=== PATIENT | female | born 1975 | race Caucasian/White ===

== ENCOUNTER 2020-12-18 07:59 | Outpatient (REF) | payer OTHER, SELFPAY ==
[2020-12-18 08:25] LABS: MANUAL DIFF FLAG NO
[2020-12-18 08:41] LABS: Basophils Absolute Auto 0.1 X10*3/uL (0.0-0.2); Basophils Percent Auto 1.1 % (0-2); Eosinophils Absolute Auto 0.4 X10*3/uL (0.0-0.4); Eosinophils Percent Auto 5.8 % (0-4); Hematocrit 37.8 % (37-47); Hemoglobin 12.6 g/dl (12.0-16.0); Imm Gran Abs Auto 0.02 X10*3/uL (0.00-0.03); Imm Gran Pct Auto 0.3 % (0.0-0.4); Lymphocytes Absolute Auto 1.9 X10*3/uL (1.2-4.9); Lymphocytes Percent Auto 30.3 % (20-40); Mean Corpuscular HGB Conc 33.3 g/dl (31.0-35.0); Mean Corpuscular Hemoglobin 28.5 pg (27.0-33.0); Mean Corpuscular Volume 85.5 fL (80-98); Monocytes Absolute Auto 0.4 X10*3/uL (0.1-1.2); Monocytes Percent Auto 6.6 % (2-11); Neutrophils Absolute Auto 3.6 X10*3/uL (2.0-8.3); Neutrophils Percent Auto 55.9 % (45-73); Platelet Count 292 X10*3/uL (160-400); Red Blood Count 4.42 X10*6/uL (4.20-5.50); Red Cell Distribution Width 11.8 % (11.0-16.0); White Blood Count 6.4 X10*3/uL (4.8-10.8)
[2020-12-18 08:44] LABS: Estimated Average Glucose 105 mg/dL; Hemoglobin A1c % 5.3 %
[2020-12-18 09:09] LABS: Alanine Aminotransferase 35 U/L (0-31); Albumin Level 4.3 g/dL (3.5-5.0); Alkaline Phosphatase 67 U/L (39-117); Anion Gap 13 (12-20); Aspartate Amino Transferase 28 U/L (5-31); Bilirubin Total 0.5 mg/dL (0.0-1.0); Blood Urea Nitrogen 16 mg/dL (9-16); Calcium 9.1 mg/dL (8.4-10.2); Carbon Dioxide 24 mmol/L (22-29); Chloride 107 mmol/L (96-108); Cholesterol 212 mg/dL; Estimated Glomerular Filt Rate > 60; Glucose Fasting 86 mg/dL (60-99); HDL Cholesterol 47 mg/dL; LDL Cholesterol Calculated 131 mg/dl; Potassium 4.6 mmol/L (3.3-5.1); Sodium 139 mmol/L (135-145); Total Protein 6.9 g/dL (6.5-8.0); Triglycerides 171 mg/dL
[2020-12-18 09:29] LABS: TSH reflex Free T4 0.77 uIU/mL (0.32-4.0)
[2020-12-23 14:06] LABS: Aldosterone/Renin Ratio 6.2 Ratio (0.9-28.9)
== END 2020-12-18 08:00 | disposition home or self-care (01) ==
LOC: HO.LAB 07:59
PROVIDERS: PCP Physician Assistant; Visit Provider Physician Assistant
DX: I10 Essential (primary) hypertension (principal); E03.9 Hypothyroidism, unspecified; E78.2 Mixed hyperlipidemia
CPT/HCPCS: 36415; 80053; 80061; 82088; 83036; 84443; 85025

== ENCOUNTER 2021-12-20 06:45 | Outpatient (REF) | payer OTHER, SELFPAY ==
[2021-12-20 07:15] LABS: Hematocrit 37.8 % (37.0-47.0); Hemoglobin 12.5 g/dl (12.0-16.0); Mean Corpuscular HGB Conc 33.1 g/dl (31.0-35.0); Mean Corpuscular Hemoglobin 28.3 pg (27.0-33.0); Mean Corpuscular Volume 85.5 fL (80.0-98.0); Mean Platelet Volume 8.9 fL (9.4-12.3); Platelet Count 274 X10*3/uL (160-400); Red Blood Count 4.42 X10*6/uL (4.20-5.50); Red Cell Distribution Width 11.9 % (11.0-16.0); White Blood Count 7.3 X10*3/uL (4.8-10.8)
[2021-12-20 07:21] LABS: Estimated Average Glucose 105 mg/dL; Hemoglobin A1c % 5.3 %
[2021-12-20 07:44] LABS: Alanine Aminotransferase 64 U/L (0-31); Albumin Level 4.4 g/dL (3.5-5.0); Alkaline Phosphatase 60 U/L (39-117); Anion Gap 12 (12-20); Aspartate Amino Transferase 36 U/L (5-31); Bilirubin Total 0.6 mg/dL (0.0-1.0); Blood Urea Nitrogen 16 mg/dL (9-16); Calcium 9.1 mg/dL (8.4-10.2); Carbon Dioxide 24 mmol/L (22-29); Chloride 104 mmol/L (96-108); Cholesterol 193 mg/dL; Estimated Glomerular Filt Rate > 60; Glucose Fasting 92 mg/dL (60-99); HDL Cholesterol 39 mg/dL; LDL Cholesterol Calculated 112 mg/dl; Potassium 4.5 mmol/L (3.3-5.1); Sodium 135 mmol/L (135-145); Total Protein 6.8 g/dL (6.5-8.0); Triglycerides 210 mg/dL
[2021-12-20 08:05] LABS: TSH reflex Free T4 1.95 uIU/mL (0.32-4.0); Vitamin D 25-OH Total 60.4 ng/mL (>30)
== END 2021-12-20 06:46 | disposition home or self-care (01) ==
LOC: HO.LAB 06:45
PROVIDERS: PCP Physician Assistant; Visit Provider Physician Assistant
DX: I10 Essential (primary) hypertension (principal); E78.2 Mixed hyperlipidemia; E03.9 Hypothyroidism, unspecified; F32.A Depression, unspecified
CPT/HCPCS: 36415; 80053; 80061; 82306; 83036; 84443; 85027

== ENCOUNTER 2021-12-26 09:57 | Outpatient (REF) | payer OTHER, SELFPAY ==
[2021-12-26 10:33] LABS: Hematocrit 36.6 % (37.0-47.0); Hemoglobin 12.6 g/dl (12.0-16.0); Mean Corpuscular HGB Conc 34.4 g/dl (31.0-35.0); Mean Corpuscular Hemoglobin 28.8 pg (27.0-33.0); Mean Corpuscular Volume 83.8 fL (80.0-98.0); Mean Platelet Volume 8.9 fL (9.4-12.3); Platelet Count 285 X10*3/uL (160-400); Red Blood Count 4.37 X10*6/uL (4.20-5.50); Red Cell Distribution Width 11.8 % (11.0-16.0); White Blood Count 6.8 X10*3/uL (4.8-10.8)
[2021-12-26 11:13] LABS: Alanine Aminotransferase 60 U/L (0-31); Albumin Level 4.5 g/dL (3.5-5.0); Alkaline Phosphatase 65 U/L (39-117); Anion Gap 13 (12-20); Aspartate Amino Transferase 41 U/L (5-31); Bilirubin Total 0.3 mg/dL (0.0-1.0); Blood Urea Nitrogen 15 mg/dL (9-16); Calcium 9.5 mg/dL (8.4-10.2); Carbon Dioxide 26 mmol/L (22-29); Chloride 103 mmol/L (96-108); Cholesterol 187 mg/dL; Estimated Glomerular Filt Rate > 60; Glucose Fasting 87 mg/dL (60-99); HDL Cholesterol 45 mg/dL; LDL Cholesterol Calculated 97 mg/dl; Potassium 4.4 mmol/L (3.3-5.1); Sodium 138 mmol/L (135-145); Total Protein 7.2 g/dL (6.5-8.0); Triglycerides 228 mg/dL
[2021-12-26 11:35] LABS: TSH reflex Free T4 2.09 uIU/mL (0.32-4.0)
[2021-12-28 02:17] LABS: Follicle Stimulating Hormone 9.3 mIU/mL
[2021-12-28 15:36] LABS: Transglutaminase Ab IgG <1.0 U/mL; Transglutaminase IgA <1.0 U/mL
== END 2021-12-26 09:58 | disposition home or self-care (01) ==
LOC: HO.LAB 09:57
PROVIDERS: PCP Physician Assistant; Visit Provider Physician Assistant
DX: I10 Essential (primary) hypertension (principal); E03.9 Hypothyroidism, unspecified; E78.2 Mixed hyperlipidemia; R14.0 Abdominal distension (gaseous); R79.89 Other specified abnormal findings of blood chemistry
CPT/HCPCS: 36415; 80053; 80061; 83001; 84443; 85027; 86364

== ENCOUNTER 2022-03-13 07:54 | Outpatient (REF) | payer OTHER, SELFPAY ==
--- NOTE | ~2022-03-13 | US_ITS ---
EXAMINATION: US ABDOMEN COMPLETE CLINICAL INFORMATION: Other specified abnormal findings of blood chemistry. COMPARISON: None TECHNIQUE: Real-time imaging of the abdominal viscera. Technically limited study secondary to bowel gas. FINDINGS: PANCREAS: Partially visualized body of the pancreas is homogeneous in echotexture. The rest of the pancreas is obscured by overlying gas. ABDOMINAL AORTA: The proximal and mid abdominal aorta is normal caliber. The distal abdominal aorta is not visualized. INFERIOR VENA CAVA: Visualized portions are normal. LIVER: The liver is enlarged measuring 18.2 cm in length. The liver contour is normal. No focal hepatic lesions seen. There is no intrahepatic biliary duct dilatation seen. GALLBLADDER: Normal. The gallbladder is physiologically distended without evidence of stones, sludge, polyps, wall thickening or pericholecystic fluid. COMMON BILE DUCT: Not visualized. RIGHT KIDNEY: Normal. No hydronephrosis. No renal calculi or focal parenchymal lesions. The kidney measures 12.8 cm in maximum dimension. LEFT KIDNEY: No hydronephrosis. No renal calculi or focal parenchymal lesions. The kidney measures 12.0 cm in maximum dimension. SPLEEN: Normal. The spleen measures 10.4 cm in maximum dimension. FREE FLUID: None. US/US abdomen complete IMPRESSION: Mild enlarged liver with increased echogenicity but no focal lesion. Mild left renal pelvic fullness. No echogenic renal calculi. Pancreas is suboptimally visualized.
== END 2022-03-13 07:55 | disposition home or self-care (01) ==
LOC: HO.US 07:54
PROVIDERS: Visit Provider Physician Assistant
DX: R79.89 Other specified abnormal findings of blood chemistry (principal)
CPT/HCPCS: 76700

== ENCOUNTER 2023-01-01 07:41 | Outpatient (REF) | payer OTHER, SELFPAY ==
[2023-01-01 08:25] LABS: Hematocrit 38.4 % (37.0-47.0); Hemoglobin 12.8 g/dl (12.0-16.0); Mean Corpuscular HGB Conc 33.3 g/dl (31.0-35.0); Mean Corpuscular Hemoglobin 27.9 pg (27.0-33.0); Mean Corpuscular Volume 83.8 fL (80.0-98.0); Mean Platelet Volume 9.4 fL (9.4-12.3); Platelet Count 304 X10*3/uL (160-400); Red Blood Count 4.58 X10*6/uL (4.20-5.50); White Blood Count 6.9 X10*3/uL (4.8-10.8)
[2023-01-01 09:51] LABS: Alanine Aminotransferase 35 U/L (0-31); Albumin Level 4.3 g/dL (3.5-5.0); Alkaline Phosphatase 52 U/L (39-117); Anion Gap 14 (12-20); Aspartate Amino Transferase 31 U/L (5-31); Bilirubin Total 0.5 mg/dL (0.0-1.0); Blood Urea Nitrogen 18 mg/dL (9-16); Calcium 9.3 mg/dL (8.4-10.2); Carbon Dioxide 20 mmol/L (22-29); Chloride 108 mmol/L (96-108); Cholesterol 177 mg/dL; Estimated Glomerular Filt Rate > 60; Glucose Fasting 84 mg/dL (60-99); HDL Cholesterol 47 mg/dL; LDL Cholesterol Calculated 94 mg/dl; Potassium 4.4 mmol/L (3.3-5.1); Sodium 138 mmol/L (135-145); Total Protein 7.4 g/dL (6.5-8.0); Triglycerides 181 mg/dL
[2023-01-01 09:58] LABS: Creatinine Urine 124.52 mg/dL; Microalbumin Urine < 5.0 mg/L
[2023-01-01 10:07] LABS: TSH reflex Free T4 2.52 uIU/mL (0.32-4.0)
== END 2023-01-01 07:42 | disposition home or self-care (01) ==
LOC: HO.LAB 07:41
PROVIDERS: PCP Physician Assistant; Visit Provider Physician Assistant
DX: I10 Essential (primary) hypertension (principal); E78.2 Mixed hyperlipidemia; E03.9 Hypothyroidism, unspecified
CPT/HCPCS: 36415; 80053; 80061; 82043; 84443; 85027

== ENCOUNTER 2023-01-06 07:55 | Outpatient (AMB) | payer OTHER, SELFPAY ==
--- NOTE | 2023-01-06 08:02 | MHC.PC.OV ---
Vital Signs 01/06/23 08:03 Height 5 ft 5 in Weight 178 lb BMI 29.6 BP 128/72 Blood Pressure Location Lt brachial Position Sitting Pulse 78 Pulse Source Pulse Oximeter Pulse Oximetry (%) 98 Oxygen Delivery Method Room Air Intake Visit Reasons: PE Allergies No Known Allergies Allergy (Verified 01/06/23 08:14) Medication List - Last Reconciled 01/06/23 by Joshua Cam PA-C citalopram 40 mg PO DAILY 90 days levothyroxine 75 mcg PO DAILY lisinopril-hydrochlorothiazide 10-12.5 mg 1 tab PO DAILY 90 days lorazepam 0.5 mg PO BEDTIME 10 days miscellaneous medical supply (Blood Pressure Cuff) As directed simvastatin 20 mg PO DAILY 90 days Tobacco use date assessed: 01/06/23 Dental Screening Dental Screen Date: 01/06/23 Did you have a dental visit in the last 12 months?: Yes Did you have a dental problem in the last 6 months where you did not have access to dental care?: No Was dental information given to patient?: Patient has dentist HPI PE HPI Details Patient is a 47 y/o F here today for annual physical. Patient's pmhx is significant for hypothyroism, HTN, hld. Concerns--> she does report having breakthrough anxiety at times to which she smokes and drinks . ? .. ? Hypothyroidism: On levothyroxine, has been chemically and clinically euthyroid, no symptoms as of late.? TSH stable .. ? Hypertension:? Blood pressure acceptable today in office. ? She reports monitoring blood pressure at home have been stable. She denies any chest pain, headaches or dizziness.. ?She was started on lisinopril hydrochlorothiazide which has made a small improvement in her blood pressures. Otherwise denies any headaches, chest discomfort her vision issues. ? .. ? Anxiety: Patient denies any SI or HI. Patient is followed by a therapist she talks to biweekly. Most of her anxiety is stress related due to her job. ? Patient continues Celexa 40 mg which has been working well to reduce her anxiety.? She is now speaking with a mental health therapist and is feeling better. .. Elevated LFTs:? Most recent liver enzymes slightly elevated though better. Ultrasound of abdomen does show evidence of fatty liver Again advised on a reducing her weight and reducing alcohol intake. Vaccine:? Up-to-date with COVID vaccine, up-to-date with tetanus vaccine, Need sTdap .. CATECHIST: Followed by log operations coordinator - Dr Tapia at [facility]. Colon cancer screening: Willing to do Cologaud .. Mammo:-? Normal. Laboratory Tests 12/26/21 01/01/23 01/01/23 10:06 07:50 07:50 Hgb 12.8 Creatinine 0.92 ALT 60 H 35 H Triglycerides 181 Cholesterol 177 TSH 2.52 Urine Microalbumin 01/01/23 07:50 Hgb Creatinine ALT Triglycerides Cholesterol TSH Urine Microalbumin < 5.0 PFSH Surgical History History of mandibular surgery History of repair of cleft lip History of rhinoplasty Family History Father Hypertension Mother Hypertension Hypercholesterolemia Myocardial infarction, Onset Age: 55 Maternal Aunt Heart disease Social History (Updated 01/06/23 @ 08:21 by Joshua Cam PA-C) Housing: Condominium Alcohol intake: current Alcohol intake frequency: a few times a week Patient Tobacco Use Status: Current someday Tobacco user Tobacco use type: Cigarette e-Cigarette/Vaping Use: Never Used Second Hand Smoke Exposure: Yes service: No Current occupational status: employed Current occupation: self employed - [employer] Cognitive needs: No Hearing needs: No Vision needs: No Questionnaire PHQ-9 Over the last 2 weeks, how often have you been bothered by any of the following problems? 1. Little interest or pleasure in doing things: several days 2. Feeling down, depressed, or hopeless: more than half the days 3. Trouble falling or staying asleep, or sleeping too much: several days 4. Feeling tired or having little energy: not at all 5. Poor appetite or overeating: not at all 6. Feeling bad about yourself - or that you are a failure or have let yourself or your family down: several days 7. Trouble concentrating on things, such as reading the newspaper or watching television: not at all 8. Moving or speaking so slowly that other people could have noticed. Or the opposite - being so fidgety or restless that you have been moving around a lot more than usual: not at all 9. Thoughts that you would be better off or of hurting yourself in some way: not at all Total score: 5 Depression Screening Interpretation: Positive 77267 - PHQ-9 Billing: Yes Source: Developed by Drs. Christopher Payne, Cindy Frye, Owen Mcneal and colleagues, with an educational francisca from [employer]. Thrive Questionnaire Date Thrive assessed: 01/06/23 I am a: Patient What is your living situation today?: I have a steady place to live Within the past 12 months, did the food you bought not last and you didn't have the money to get more?: Never true Within the past 12 months, did you worry whether your food would run out before you got money to buy more?: Never true Do you have trouble paying for medicines?: No Do you have trouble getting transportation to medical appointments?: No Do you have trouble paying your heating and electricity bill?: No Do you have trouble taking care of your child, family member or friend?: No Do you have trouble with day-to-day activities such as bathing, preparing meals, shopping, managing finances, etc.?: No Are you currently unemployed and looking for a job?: No Are you interested in more education?: No Currently or been in a relationship where the following occur: no concerns reported AUDIT C Alcohol Use Questionnaire (AUDIT-C) 1. How often do you have a drink containing alcohol?: 2-3 times a week 2. How many drinks containing alcohol do you have on a typical day when you are drinking?: 3 or 4 3. How often do you have six or more drinks on one occasion?: Never Total Score: 4 VIKTOR-7 AMB Questionnaire VIKTOR-7 Date VIKTOR - 7 assessed: 01/06/23 Feeling nervous, anxious, or on edge: 1 = Several days Not being able to stop or control worryin = Not at all Worrying too much about different things: 0 = Not at all Trouble relaxin = Not at all Being so restless that it is hard to sit still: 0 = Not at all Becoming easily annoyed or irritable: 0 = Not at all Feeling afraid as if something awful might happen: 0 = Not at all Total VIKTRO-7 score (0-4 normal; 5-9 mild; 10-14 moderate; 15-21 severe): 1 Source: Developed by Drs. Christopher Payne, Cindy Frye, Owen Mcneal and colleagues, with an educational francisca from [employer]. VIKTOR-7 Assessment Billing VIKTOR-7 Assessment Tool: VIKTOR-7 Assessment 67822 Review of Systems Const Denies body aches, Denies chills, Denies excessive sweating, Denies fatigue, Denies fever(s) and Denies headache(s) Eyes Denies blurry vision ENT Denies dysphagia, Denies vertigo, Denies dizziness, Denies headache(s), Denies hearing loss and Denies tinnitus Card Denies chest pain, Denies chest pain with activity, Denies syncope, Denies irregular heart rhythm and Denies dyspnea Resp Denies chest congestion, Denies cough, Denies hemoptysis, Denies dyspnea and Denies wheezing GI Denies abdominal pain, Denies melena, Denies hematochezia, Denies coffee ground emesis, Denies dysphagia, Denies diarrhea, Denies nausea and Denies vomiting Denies urinary frequency, Denies dysuria, Denies urinary hesitancy and Denies urinary urgency Musc Denies arthralgias, Denies limited range of motion, Denies muscle cramps and Denies muscle weakness Skin/Breast Denies rash and Denies skin ulcer Neuro Denies Abnormal speech present, Denies confusion, Denies vertigo, Denies dizziness, Denies syncope, Denies headache(s), Denies memory loss and Denies seizure-like activity Psych Denies anxiety, Denies confusion, Denies depression, Denies memory loss, Denies panic attacks and Denies paranoia Endo Denies excessive sweating, Denies fatigue, Denies flushing, Denies polydipsia and Denies polyuria Aller/Immun Denies wheezing Physical exam (Primary Care) Vital Signs: Last Vital Signs Pulse 78 01/06/23 08:03 BP 128/72 01/06/23 08:03 Pulse Ox 98 01/06/23 08:03 Oxygen Delivery Method Room Air 01/06/23 08:03 BMI result Body Mass Index 29.6 Tobacco/Smoking Status: Tobacco use Status Tobacco use date assessed 01/06/23 01/06/23 08:12 Patient Tobacco Use Status Current someday Tobacco 01/06/23 08:21 Tobacco use type Cigarette 01/06/23 08:21 e-Cigarette/Vaping Use Never Used 01/06/23 08:21 PHQ-9: PHQ-9 Score PHQ-9: Total score 5 01/06/23 08:43 Depression Screening Interpretation: Positive Thrive Assessment: Date of Thrive Assessment Date Thrive assessed 01/06/23 01/06/23 08:12 Currently or been in a relationship where the following occur: no concerns reported Const General: cooperative, comfortable, no acute distress, alert and awake; No confusion Orientation/consciousness: oriented to person, oriented to place, patient oriented x3 and No confusion HENMT Head: Yes normocephalic Ears: external ears normal and TM's normal bilaterally Face and sinus: No sinus tenderness Mouth: Normal oral and palatal mucosa present and tongue normal Teeth and gingiva: dentition normal and gingiva normal Throat: Yes posterior oropharynx normal, Yes tonsils normal and Yes uvula midline Eyes Conjunctivae: conjunctivae normal Sclerae: sclerae normal Pupils: Equal, round and reactive pupils present EOM: EOMs intact bilaterally Direct Ophthalmoscopy: No no photophobia Neck Neck: Yes no lymphadenopathy, No tender and Yes no JVD Thyroid: Thyroid normal Carotids: no bruits Chest Chest palpation & inspection: no tenderness Resp Effort & Inspection: normal respiratory effort, no audible wheezes, not labored and no stridor Auscultation: no crackles, no rales, no rhonchi and no wheezes Cardio Jugular venous distension: no JVD Rate: regular rate, not bradycardic and not tachycardic Rhythm: regular rhythm Bruits: no carotid bruits Peripheral pulses: Peripheral pulses 2+ throughout GI Inspection: Yes normal to inspection, No abdominal wall ecchymosis and No visible herniation Palpation (GI): Soft to palpation, nontender, no guarding, not rigid and No hepatosplenomegaly present Auscultation: normoactive bowel sounds General: Yes no CVA tenderness Back/Spine/Pelvis Back: no CVA tenderness and No back tenderness Cervical Spine: cervical ROM normal Thoracic/Lumbar Spine: thoracic and lumbar spine normal to inspection, straight leg raise negative bilaterally, No thoraco-lumbar ROM limited and No lumbar spinal tenderness Skin Lesions: no lesions Rashes: no rashes Wounds: no wounds Neuro General: oriented to person, oriented to place, patient oriented x3, CN's II-XI intact bilaterally and No confusion Cranial nerves: Yes Equal, round and reactive pupils present and Yes Normal accommodation reflex present Cognition (Neuro): normal cognition Speech: No Abnormal speech present Gait exam (Neuro): Normal gait present Motor exam (neuro): 5/5 motor strength present throughout Extrem Right upper extremity: full ROM; no cyanosis Left upper extremity: full ROM; no cyanosis Right lower extremity: no edema Left lower extremity: no edema Psych Appearance: grossly normal Mental Status: mental status grossly normal Affect: normal affect Attitude: cooperative Thought process: Normal thought process present Immunizations Boostrix Tdap Performing Provider: Joshua Cam PA-C Administered by: Cassandra Kenyon CMA on 01/06/23 08:39 Dose Route Admin Location Lot Number Expiration Date [employer] Advisor 0.5 mL IM Right Deltoid [id number] 04/09/25 [id number] appsplit VIS Given Date VIS Provided VIS Publication Date 01/06/23 Single Vaccine 21 Eligibility Eligibility Date Funding Source Not [facility] Eligible 01/06/23 Private Assessment and Plan Assessment & Plan (1) Annual physical exam: Code(s): Z00.00 - Encounter for general adult medical examination without abnormal findings (2) Colon cancer screening: Code(s): Z12.11 - Encounter for screening for malignant neoplasm of colon Plan: Willing to do Cologuard (3) HLD (hyperlipidemia): Code(s): E78.5 - Hyperlipidemia, unspecified Qualifiers: Hyperlipidemia type: mixed hyperlipidemia Qualified Code(s): E78.2 - Mixed hyperlipidemia Plan: Patient's most recent lipid panel showing septal bbl total cholesterol and LDL. Will continue her current dose of simvastatin (4) HTN (hypertension): Code(s): I10 - Essential (primary) hypertension Qualifiers: Hypertension type: essential hypertension Qualified Code(s): I10 - Essential (primary) hypertension Plan: Patient's blood pressure acceptable today in office. Does report at times when taking blood pressure at home has been acceptable. Will continue current dose of lisinopril with goal blood pressure to be below 140/90 (5) Hypothyroid: Code(s): E03.9 - Hypothyroidism, unspecified Qualifiers: Hypothyroidism type: unspecified Qualified Code(s): E03.9 - Hypothyroidism, unspecified Plan: Patient continues on levothyroxine 75 mcg. Most recent TSH stable. Will continue to follow seems to should. (6) VIKTOR (generalized anxiety disorder): Code(s): F41.1 - Generalized anxiety disorder Plan: Patient does report some breakthrough anxiety due to her job. She wonders about increased dose of Celexa though already on maximum dose. Does have lorazepam available to her for high points of anxiety to which she will use on a p.r.n. basis. Again still speaks with a mental health therapist (7) Elevated LFTs: Code(s): R79.89 - Other specified abnormal findings of blood chemistry Plan: Have improved with some weight loss. Orders: Orders [facility]. Panel Fast 364 Days I10 - Essential (primary) hypertension Lipid Panel 364 Days E78.2 - Mixed hyperlipidemia TSH reflex Free T4 364 Days E03.9 - Hypothyroidism, unspecified Microalbumin, Random (w Creat) 364 Days I10 - Essential (primary) hypertension TDaP Immunization Today I10 - Essential (primary) hypertension, Z23 - Encounter for immunization Referrals Cologuard Test Z12.11 - Encounter for screening for malignant neoplasm of colon Coding Level of Care Code Est Pt Prev Care 40-64y(62300) Diagnoses Annual physical exam Z00.00 Colon cancer screening Z12.11 HLD (hyperlipidemia) E78.2 Hyperlipidemia type: mixed hyperlipidemia HTN (hypertension) I10 Hypertension type: essential hypertension Hypothyroid E03.9 Hypothyroidism type: unspecified VIKTOR (generalized anxiety disorder) F41.1 Elevated LFTs R79.89 Additional Codes VIKTOR-7 Assessment Billing - VIKTOR-7 Assessment Tool: VIKTOR-7 Assessment [id number] ([id number])
[2023-01-06 08:03] VITALS: BP 128/72; PULSE 78; O2SAT 98; BMI 29.6
== END 2023-01-06 08:42 | disposition home or self-care (01) ==
PROVIDERS: PCP Physician Assistant; Visit Provider Physician Assistant
DX: Z23 Encounter for immunization (principal); Z00.00 Encounter for general adult medical examination without abnormal findings; E03.9 Hypothyroidism, unspecified; I10 Essential (primary) hypertension; E78.2 Mixed hyperlipidemia; F41.1 Generalized anxiety disorder; R79.89 Other specified abnormal findings of blood chemistry
CPT/HCPCS: 90471; 90715; 99396

== ENCOUNTER 2023-05-16 15:28 | Outpatient (REF) | payer OTHER, SELFPAY ==
[2023-05-17 03:43] LABS: HBc Num1 0.26 S/CO (0.00-0.79); HBsAGNum1 0.39 S/CO (0.00-0.99); Hepatitis B Core Antibody Nonreactive (Nonreactive); Hepatitis B Surface Antigen Negative (Negative); ~HepC Num1 0.09 S/CO (0.00-0.79); ~Hepatitis B Surface Antibody NONREACTIVE (Nonreactive); ~Hepatitis C Antibody Nonreactive (Nonreactive)
[2023-05-17 14:58] LABS: Hepatitis B Viral DNA Qn - cp NOT DETECTED Log IU/mL (NOT DETECTED); Hepatitis B Viral DNA Qn-IU/mL NOT DETECTED (NOT DETECTED)
[2023-05-19 22:13] LABS: Hepatitis BE Antibody NON-REACTIVE (NON-REACTIVE)
== END 2023-05-16 15:29 | disposition home or self-care (01) ==
LOC: HO.LAB 15:28
PROVIDERS: PCP Physician Assistant; Visit Provider Physician Assistant
DX: Z11.3 Encounter for screening for infections with a predominantly sexual mode of transmission (principal); R79.89 Other specified abnormal findings of blood chemistry
CPT/HCPCS: 36415; 86704; 86706; 86707; 86803; 87340; 87517

== ENCOUNTER 2024-01-19 07:50 | Outpatient (REF) | payer OTHER, SELFPAY ==
[2024-01-19 08:27] LABS: Hematocrit 36.3 % (37.0-47.0); Hemoglobin 12.4 g/dl (12.0-16.0); Mean Corpuscular HGB Conc 34.2 g/dl (31.0-35.0); Mean Corpuscular Hemoglobin 29.3 pg (27.0-33.0); Mean Corpuscular Volume 85.8 fL (80.0-98.0); Mean Platelet Volume 8.8 fL (9.4-12.3); Platelet Count 258 X10*3/uL (160-400); Red Blood Count 4.23 X10*6/uL (4.20-5.50); Red Cell Distribution Width 12.4 % (11.0-16.0); White Blood Count 6.5 X10*3/uL (4.8-10.8)
[2024-01-19 09:01] LABS: Alanine Aminotransferase 99 U/L (0-31); Albumin Level 4.4 g/dL (3.5-5.0); Alkaline Phosphatase 63 U/L (39-117); Anion Gap 13 (12-20); Aspartate Amino Transferase 115 U/L (5-31); Bilirubin Total 0.5 mg/dL (0.0-1.0); Blood Urea Nitrogen 14 mg/dL (9-16); Calcium 9.2 mg/dL (8.4-10.2); Carbon Dioxide 22 mmol/L (22-29); Chloride 107 mmol/L (96-108); Cholesterol 194 mg/dL (<200); Estimated Glomerular Filt Rate > 60; Glucose Fasting 91 mg/dL (60-99); HDL Cholesterol 42 mg/dL (>40); LDL Cholesterol Calculated 118 mg/dL (<100); Potassium 4.3 mmol/L (3.3-5.1); Sodium 138 mmol/L (135-145); Triglycerides 173 mg/dL (<150)
[2024-01-19 09:12] LABS: HBS Num1 0.35 mIU/mL (0-7.99); HBc Num1 0.68 S/CO (0.00-0.79); Hepatitis B Core Antibody Nonreactive (Nonreactive); Hepatitis B Surface Antigen Negative (Negative); ~Hepatitis B Surface Antibody NONREACTIVE (Nonreactive)
[2024-01-19 09:19] LABS: TSH reflex Free T4 1.99 uIU/mL (0.32-4.0)
[2024-01-19 09:45] LABS: Creatinine Urine 164.87 mg/dL
== END 2024-01-19 07:51 | disposition home or self-care (01) ==
LOC: HO.LAB 07:50
PROVIDERS: PCP Physician Assistant; Visit Provider Physician Assistant
DX: I10 Essential (primary) hypertension (principal); R79.89 Other specified abnormal findings of blood chemistry; E78.2 Mixed hyperlipidemia; E03.9 Hypothyroidism, unspecified
CPT/HCPCS: 36415; 80053; 80061; 82043; 82570; 84443; 85027; 86704; 86706; 87340

== ENCOUNTER 2024-01-29 12:49 | Outpatient (AMB) | payer OTHER, SELFPAY ==
[2024-01-29 12:51] VITALS: BP 142/80; PULSE 105; O2SAT 97; BMI 31.2
--- NOTE | 2024-01-29 12:51 | A.OFFPC_ITS ---
Vital Signs 01/29/24 12:51 Height 5 ft 5 in Weight 187 lb 4 oz BMI 31.2 BP 142/80 H Blood Pressure Location Lt brachial Position Sitting Pulse 105 H Pulse Source Pulse Oximeter Pulse Oximetry (%) 97 Oxygen Delivery Method Room Air Intake Visit Reasons: PE Intake Note: Patient is here today for a physical. Director Orange Required: No Accompanied by: Self / Same As Patient Allergies No Known Allergies Allergy (Verified 01/29/24 13:09) Medication List - Last Reconciled 01/29/24 by Joshua Cam PA-C citalopram 40 mg PO DAILY 90 days levothyroxine 75 mcg PO DAILY lisinopril-hydrochlorothiazide 10-12.5 mg 1 tab PO DAILY 90 days lorazepam 0.5 mg PO BEDTIME 10 days miscellaneous medical supply (Blood Pressure Cuff) As directed simvastatin 20 mg PO DAILY 90 days Tobacco use date assessed: 01/06/23 Dental Screening Dental Screen Date: 01/06/23 HPI PE HPI Details Patient is a 48 y/o F here today for annual physical. Patient's pmhx is significant for hypothyroism, HTN, hld. ? .. ? Hypothyroidism: On levothyroxine, has been chemically and clinically euthyroid, no symptoms as of late.? TSH stable .. ? Hypertension:? Blood pressure slightly elevated today in office today in office. ? She reports monitoring blood pressure at home have been stable. She denies any chest pain, headaches or dizziness.. ?She was started on lisinopril hydrochlorothiazide which has made a small improvement in her blood pressures. Otherwise denies any headaches, chest discomfort her vision issues. ? .. ? Anxiety: Patient denies any SI or HI. Patient is followed by a therapist she talks to biweekly. Most of her anxiety is stress related due to her job. ? Patient continues Celexa 40 mg which has been working well to reduce her anxiety.? She is now speaking with a mental health therapist and is feeling better. .. Elevated LFTs:? Most recent liver enzymes slightly elevated though better. Ultrasound of abdomen does show evidence of fatty liver Again advised on a reducing her weight and reducing alcohol intake. Vaccine:? Up-to-date with COVID vaccine, up-to-date with tetanus vaccine, UTD with Rdap .. 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 recently had a IUD place- has been taken off of oral control Colon cancer screening: Cologuard done in 2022 normal, repeat 3 years .. Mammo:-? done in August of 2023-BI-RADS 1 Laboratory Tests 12/26/21 01/01/23 01/01/23 10:06 07:50 07:50 Hgb 12.8 Creatinine 0.92 ALT 60 H 35 H Triglycerides 181 Cholesterol 177 TSH 2.52 Urine Microalbumin 01/01/23 07:50 Hgb Creatinine ALT Triglycerides Cholesterol TSH Urine Microalbumin < 5.0 PFSH Surgical History History of mandibular surgery History of repair of cleft lip History of rhinoplasty Family History Father Hypertension Mother Hypertension Hypercholesterolemia Myocardial infarction, Onset Age: 55 Maternal Aunt Heart disease Social History (Updated 01/29/24 @ 13:14 by Joshua Cam PA-C) Housing: Condominium Alcohol intake: current Alcohol intake frequency: a few times a week Patient Tobacco Use Status: Former Tobacco user Tobacco use type: Cigarette e-Cigarette/Vaping Use: Never Used Second Hand Smoke Exposure: Yes service: No Current occupational status: employed Current occupation: self employed - [employer] Cognitive needs: No Hearing needs: No Vision needs: No Questionnaire Thrive Questionnaire Date Thrive assessed: 01/06/23 VIKTOR-7 AMB Questionnaire VIKTOR-7 Date VIKTOR - 7 assessed: 01/06/23 Source: Developed by Drs. Christopher Payne, Cindy Frye, Owen Mcneal and colleagues, with an educational francisca from [employer]. Review of Systems Const Denies body aches, Denies chills, Denies excessive sweating, Denies fatigue, Denies fever(s) and Denies headache(s) Eyes Denies blurry vision ENT Denies dysphagia, Denies vertigo, Denies dizziness, Denies headache(s), Denies hearing loss and Denies tinnitus Card Denies chest pain, Denies chest pain with activity, Denies syncope, Denies irregular heart rhythm and Denies dyspnea Resp Denies chest congestion, Denies cough, Denies hemoptysis, Denies dyspnea and Denies wheezing GI Denies abdominal pain, Denies melena, Denies hematochezia, Denies coffee ground emesis, Denies dysphagia, Denies diarrhea, Denies nausea and Denies vomiting Denies urinary frequency, Denies dysuria, Denies urinary hesitancy and Denies urinary urgency Musc Denies arthralgias, Denies limited range of motion, Denies muscle cramps and Denies muscle weakness Skin/Breast Denies rash and Denies skin ulcer Neuro Denies Abnormal speech present, Denies confusion, Denies vertigo, Denies dizziness, Denies syncope, Denies headache(s), Denies memory loss and Denies seizure-like activity Psych Denies anxiety, Denies confusion, Denies depression, Denies memory loss, Denies panic attacks and Denies paranoia Endo Denies excessive sweating, Denies fatigue, Denies flushing, Denies polydipsia and Denies polyuria Aller/Immun Denies wheezing Physical exam (Primary Care) Vital Signs: Last Vital Signs Pulse 105 H 01/29/24 12:51 BP 142/80 H 01/29/24 12:51 Pulse Ox 97 01/29/24 12:51 Oxygen Delivery Method Room Air 01/29/24 12:51 BMI result Body Mass Index 31.2 Tobacco/Smoking Status: Tobacco use Status Tobacco use date assessed 01/06/23 01/29/24 12:52 Patient Tobacco Use Status Current someday Tobacco 01/29/24 12:52 Tobacco use type Cigarette 01/29/24 12:52 e-Cigarette/Vaping Use Never Used 01/29/24 12:52 Thrive Assessment: Date of Thrive Assessment Date Thrive assessed 01/06/23 01/29/24 12:52 Const General: cooperative, comfortable, no acute distress, alert and awake; No confusion Orientation/consciousness: oriented to person, oriented to place, patient oriented x3 and No confusion HENMT Head: Yes normocephalic Ears: external ears normal and TM's normal bilaterally Face and sinus: No sinus tenderness Mouth: Normal oral and palatal mucosa present and tongue normal Teeth and gingiva: dentition normal and gingiva normal Throat: Yes posterior oropharynx normal, Yes tonsils normal and Yes uvula midline Eyes Conjunctivae: conjunctivae normal Sclerae: sclerae normal Pupils: Equal, round and reactive pupils present EOM: EOMs intact bilaterally Direct Ophthalmoscopy: No no photophobia Neck Neck: Yes no lymphadenopathy, No tender and Yes no JVD Thyroid: Thyroid normal Carotids: no bruits Chest Chest palpation & inspection: no tenderness Resp Effort & Inspection: normal respiratory effort, no audible wheezes, not labored and no stridor Auscultation: no crackles, no rales, no rhonchi and no wheezes Cardio Jugular venous distension: no JVD Rate: regular rate, not bradycardic and not tachycardic Rhythm: regular rhythm Bruits: no carotid bruits Peripheral pulses: Peripheral pulses 2+ throughout GI Inspection: Yes normal to inspection, No abdominal wall ecchymosis and No visible herniation Palpation (GI): Soft to palpation, nontender, no guarding, not rigid and No hepatosplenomegaly present Auscultation: normoactive bowel sounds General: Yes no CVA tenderness Back/Spine/Pelvis Back: no CVA tenderness and No back tenderness Cervical Spine: cervical ROM normal Thoracic/Lumbar Spine: thoracic and lumbar spine normal to inspection, straight leg raise negative bilaterally, No thoraco-lumbar ROM limited and No lumbar spinal tenderness Skin Lesions: no lesions Rashes: no rashes Wounds: no wounds Neuro General: oriented to person, oriented to place, patient oriented x3, CN's II-XI intact bilaterally and No confusion Cranial nerves: Yes Equal, round and reactive pupils present and Yes Normal accommodation reflex present Cognition (Neuro): normal cognition Speech: No Abnormal speech present Gait exam (Neuro): Normal gait present Motor exam (neuro): 5/5 motor strength present throughout Extrem Right upper extremity: full ROM; no cyanosis Left upper extremity: full ROM; no cyanosis Right lower extremity: no edema Left lower extremity: no edema Psych Appearance: grossly normal Mental Status: mental status grossly normal Affect: normal affect Attitude: cooperative Thought process: Normal thought process present Assessment and Plan Assessment & Plan (1) Annual physical exam: Code(s): Z00.00 - Encounter for general adult medical examination without abnormal findings (2) HLD (hyperlipidemia): Code(s): E78.5 - Hyperlipidemia, unspecified Qualifiers: Hyperlipidemia type: mixed hyperlipidemia Qualified Code(s): E78.2 - Mixed hyperlipidemia Plan: Patient's most recent lipid panel showing acceptable total cholesterol and LDL. Has been holding her simvastatin due to elevations in her liver enzymes. Goal LDL to be below 160 (3) HTN (hypertension): Code(s): I10 - Essential (primary) hypertension Qualifiers: Hypertension type: essential hypertension Qualified Code(s): I10 - Essential (primary) hypertension Plan: Patient's blood pressure slightly elevated today in office. Does report at times when taking blood pressure at home has been acceptable. Will continue current dose of lisinopril with goal blood pressure to be below 140/90 (4) Hypothyroid: Code(s): E03.9 - Hypothyroidism, unspecified Qualifiers: Hypothyroidism type: unspecified Qualified Code(s): E03.9 - Hypothyroidism, unspecified Plan: Patient continues on levothyroxine 75 mcg. Most recent TSH stable. Will continue to follow seems to should. (5) VIKTOR (generalized anxiety disorder): Code(s): F41.1 - Generalized anxiety disorder Plan: She reports her anxiety has been well controlled with current dose of Celexa 40 mg. 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 Has gained weight since last office visit elevations in her liver enzymes have been noted as well. Did have ultrasound of her abdomen in 2021 that did show enlarged liver. Orders: Orders Comprehensive [place]. Panel Fast 3 Months E78.2 - Mixed hyperlipidemia Lipid Panel 3 Months E78.2 - Mixed hyperlipidemia Patient Instructions: Goal: Blood pressure to be below 140/90, LDL to remain below 160. Barriers: Adherence to physical activity and healthy eating habits Coding Level of Care Code Est Pt Prev Care 40-64y(68358) Diagnoses Annual physical exam Z00.00 Mixed hyperlipidemia E78.2 Hyperlipidemia type: mixed hyperlipidemia Essential hypertension I10 Hypertension type: essential hypertension Hypothyroidism, unspecified type E03.9 Hypothyroidism type: unspecified VIKTOR (generalized anxiety disorder) F41.1 Elevated LFTs R79.89
== END 2024-01-29 13:32 | disposition home or self-care (01) ==
PROVIDERS: PCP Physician Assistant; Visit Provider Physician Assistant
DX: Z00.00 Encounter for general adult medical examination without abnormal findings (principal); E78.2 Mixed hyperlipidemia; I10 Essential (primary) hypertension; E03.9 Hypothyroidism, unspecified; F41.1 Generalized anxiety disorder; R79.89 Other specified abnormal findings of blood chemistry
CPT/HCPCS: 99396

== ENCOUNTER 2024-07-27 08:43 | Outpatient (REF) | payer OTHER, SELFPAY ==
[2024-07-27 10:06] LABS: Alanine Aminotransferase 92 U/L (0-31); Albumin Level 4.4 g/dL (3.5-5.0); Alkaline Phosphatase 71 U/L (39-117); Anion Gap 11 (12-20); Aspartate Amino Transferase 66 U/L (5-31); Bilirubin Total 0.5 mg/dL (0.0-1.0); Blood Urea Nitrogen 19 mg/dL (9-16); Calcium 9.1 mg/dL (8.4-10.2); Carbon Dioxide 24 mmol/L (22-29); Chloride 105 mmol/L (96-108); Cholesterol 268 mg/dL (<200); Estimated Glomerular Filt Rate > 60; Glucose Fasting 94 mg/dL (60-99); HDL Cholesterol 40 mg/dL (>40); LDL Cholesterol Calculated 190 mg/dL (<100); Potassium 4.4 mmol/L (3.3-5.1); Sodium 136 mmol/L (135-145); Total Protein 7.7 g/dL (6.5-8.0); Triglycerides 191 mg/dL (<150)
[2024-07-27 10:17] LABS: HBc Num1 0.49 S/CO (0.00-0.79); Hepatitis B Core Antibody Nonreactive (Nonreactive)
[2024-07-27 10:23] LABS: TSH reflex Free T4 2.86 uIU/mL (0.32-4.0)
[2024-07-27 10:42] LABS: Creatinine Urine 153.45 mg/dL; Microalbum/Creatinine Ratio Ur 4.5 ug/mg cr (<30)
== END 2024-07-27 08:44 | disposition home or self-care (01) ==
LOC: HO.LAB 08:43
PROVIDERS: PCP Physician Assistant; Visit Provider Physician Assistant
DX: E78.2 Mixed hyperlipidemia (principal); R79.89 Other specified abnormal findings of blood chemistry; I10 Essential (primary) hypertension; E03.9 Hypothyroidism, unspecified
CPT/HCPCS: 36415; 80053; 80061; 82043; 82570; 84443; 86704

== ENCOUNTER 2024-09-06 08:50 | Outpatient (REF) | payer OTHER, SELFPAY ==
--- NOTE | ~2024-09-06 | US_ITS ---
EXAMINATION: US ABDOMEN LIMITED WITH LIVER ELASTOGRAPHY HISTORY: R79.89 - Other specified abnormal findings of blood chemistry TECHNIQUE: Real-time grayscale ultrasound imaging of the right upper quadrant was performed and images were reviewed. COMPARISON: Comparison is made with the prior examination dated 03/13/2022. FINDINGS: Liver: The right lobe of the liver measures 16.3 cm in size. The left lobe of the liver measures 10.9 cm in size. The liver demonstrates increased echotexture, consistent with steatosis. There is focal fatty sparing adjacent to the gallbladder. No focal mass or intrahepatic biliary ductal dilatation is identified. There is normal hepatopedal flow in the portal vein. Ultrasound elastography of the liver was performed with 10 separate measurements of the liver parenchyma with the patient in the supine position. Measurements were obtained approximately 2 cm below Tatiana's capsule and perpendicular to the capsule. Images are of satisfactory quality. The median shear wave velocity is 2.01 m/s. The interquartile range/median (IQR/median) is 0.03. Gallbladder and biliary tree: The gallbladder is unremarkable, without evidence of calculi, wall thickening, or pericholecystic fluid. There is no sonographic Crawford sign. The common bile duct is normal in caliber measuring 2 mm. Right Kidney: The right kidney measures 12.4 cm in length. The right kidney is unremarkable, without evidence of masses, hydronephrosis, or calculi. Pancreas: The pancreatic head, neck, and body are unremarkable. The pancreatic tail is obscured by bowel gas. Abdominal aorta and inferior vena cava: The visualized portions of the abdominal aorta and inferior vena cava are normal in caliber. There is no free fluid in the right upper quadrant. US/US abdomen joseph w elastography IMPRESSION: Hepatomegaly and hepatic steatosis. The median shear wave velocity in the liver is 2.01 m/s, corresponding to a median liver stiffness of 12.20 kPa. The IQR/median value is 0.03. This is indicative of a quality data set. Findings are indicative of a high elastography value suggestive of compensated advanced chronic liver disease. REFERENCE: Society of Radiologists in Ultrasound Liver Stiffness Thresholds (2020): LIVER STIFFNESS THRESHOLDS: *Shear wave velocity less than 1.3 m/s (Liver Stiffness equal or less than 5 kPa): High probability of being normal. *Shear wave velocity less than 1.7 m/s (Liver Stiffness less than 9 kPa): In the absence of other known clinical signs, rules out compensated advanced chronic liver disease. *Shear wave velocity between 1.7-2.1 m/s (Liver Stiffness 9-13 kPa): Suggestive of compensated advanced chronic liver disease but need further test for confirmation. *Shear wave velocity between 2.1-2.4 m/s (Liver Stiffness 13-17 kPa): Rules in compensated advanced chronic liver disease. *Shear wave velocity greater than 2.4 m/s (Liver Stiffness over 17 kPa): Suggestive of clinically significant portal hypertension. QUALITY OF DATA SET: *IQR/Median value equal or less than 0.15 implies a quality data set. *IQR/Median value over 0.15 implies a poor quality data set. SIGNIFICANT CHANGE FROM PRIOR EXAM: Significant change if liver stiffness measurement is 10% or greater from prior exam. OTHER CONSIDERATIONS: The stage of liver fibrosis may be overestimated in the setting of acute hepatitis, liver inflammation, elevated liver function tests, hepatic vascular congestion, obstructive cholestasis, non-fasting state, and infiltrative diseases such as amyloidosis and lymphoma. In some patients with NAFLD, the liver stiffness thresholds for compensated advanced chronic liver disease may be lower. In causes other than viral hepatitis and NAFLD, liver stiffness thresholds are not well established. Electronically signed by: Christopher Graham MD 09/06/2024 03:24 PM EDT
== END 2024-09-06 08:51 | disposition home or self-care (01) ==
LOC: HO.US 08:50
PROVIDERS: PCP Physician Assistant; Visit Provider Physician Assistant
DX: R79.89 Other specified abnormal findings of blood chemistry (principal)
CPT/HCPCS: 76705; 76981

== ENCOUNTER → 2024-09-06 08:52 | Outpatient (BNV) | payer OTHER, SELFPAY | PROVIDERS: PCP Physician Assistant; Visit Provider Radiology Diagnostic Radiology | DX: K76.0 Fatty (change of) liver, not elsewhere classified (principal); R16.0 Hepatomegaly, not elsewhere classified | CPT/HCPCS: 76705 ==

== ENCOUNTER 2024-11-23 15:11 | Outpatient (AMB) | payer OTHER, SELFPAY ==
--- NOTE | 2024-11-23 15:12 | A.OFFVIS_ITS ---
Vital Signs 11/23/24 15:23 Height 5 ft 5 in Weight 188 lb 4.396 oz BMI 31.3 BP 136/92 H Blood Pressure Location Rt brachial Position Sitting Pulse 84 Pulse Source Pulse Oximeter Pulse Oximetry (%) 97 Oxygen Delivery Method Room Air Intake Visit Reasons: elevated liver enzymes Intake Note: NEW PATIENT for eval of elevated LFTs. Labs done 06/2024, US done 08/2024 per PCP. CC; Pt denies any GI sx or concerns at this time. Pt does report having a cologuard ordered per PCP roughly 3-4 years ago. Gang Punch Operator Required: No Accompanied by: Self / Same As Patient Allergies simvastatin Adverse Reaction (Intermediate, Verified 11/23/24 15:17) Muscle cramps HPI HPI elevated liver enzymes: Details: 49-year-old female with past medical history of hyperlipidemia, hypertension, hypothyroidism, GERD, transaminitis is here today for initial consultation. Patient was sent to us by her PCP. Patient had elevated liver enzymes since December of last year. Patient changed her diet and her liver enzymes have improved. Patient drinks alcohol socially. 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 Patient had negative Cologuard in 2022. Denies any abdominal pain or discomfort. Denies any dyspepsia, dysphagia or odynophagia. [facility] Medical History (Updated 11/23/24 @ 15:51 by Savita Schmitz [facility]) NAFL (nonalcoholic fatty liver) Surgical History History of mandibular surgery History of repair of cleft lip History of rhinoplasty Family History Father Hypertension Mother Hypertension Hypercholesterolemia Myocardial infarction, Onset Age: 55 Maternal Aunt Heart disease Social History Housing: Condominium Alcohol intake: current Alcohol intake frequency: a few times a week Patient Tobacco Use Status: Former Tobacco user Tobacco use type: Cigarette e-Cigarette/Vaping Use: Never Used Second Hand Smoke Exposure: Yes service: No Current occupational status: employed Current occupation: self employed - [employer] Cognitive needs: No Hearing needs: No Vision needs: No Review of Systems Const Denies weight gain and Denies weight loss ENT Reports no additional complaints, Denies dysphagia and Denies odynophagia Card Reports no additional complaints Resp Reports no additional complaints GI Denies abdominal pain, Denies belching, Denies melena, Denies bloating, Denies change in bowel habits, Denies dysphagia, Denies excessive flatus, Denies dyspepsia, Denies heartburn, Denies diarrhea, Denies loose stools, Denies nausea, Denies odynophagia and Denies vomiting Musc Reports no additional complaints Neuro Reports no additional complaints Psych Reports no additional complaints Endo Reports no additional complaints Physical Exam Const General: healthy appearing, no acute distress and well developed Nutritional Appearance: well nourished Orientation/consciousness: patient oriented x3 Resp Effort & Inspection: normal respiratory effort, able to speak in complete sentences, no tracheal deviation and symmetric chest movement Auscultation: clear to auscultation bilaterally Cardio Rate: regular rate GI Inspection: Yes normal to inspection and No distended Palpation (GI): Soft to palpation, not firm, nontender and No hepatosplenomegaly present Auscultation: normal bowel sounds General: Yes no CVA tenderness Back/Spine/Pelvis Back: no CVA tenderness Skin General skin exam: elasticity normal, turgor normal and dry skin Neuro General: patient oriented x3 Psych Appearance: grossly normal Mental Status: mental status grossly normal Results Reviewed Results Reviewed: Laboratory Tests 01/01/23 01/19/24 07/27/24 07:50 08:02 08:56 AST 31 115 H 66 H ALT 35 H 99 H 92 H Alkaline Phosphatase 52 63 71 ABDOMINAL ULTRASOUND WITH LIVER ELASTOGRAPHY FINDINGS: Liver: The right lobe of the liver measures 16.3 cm in size. The left lobe of the liver measures 10.9 cm in size. The liver demonstrates increased echotexture, consistent with steatosis. There is focal fatty sparing adjacent to the gallbladder. No focal mass or intrahepatic biliary ductal dilatation is identified. There is normal hepatopedal flow in the portal vein. Ultrasound elastography of the liver was performed with 10 separate measurements of the liver parenchyma with the patient in the supine position. Measurements were obtained approximately 2 cm below Tatiana's capsule and perpendicular to the capsule. Images are of satisfactory quality. The median shear wave velocity is 2.01 m/s. The interquartile range/median (IQR/median) is 0.03. Gallbladder and biliary tree: The gallbladder is unremarkable, without evidence of calculi, wall thickening, or pericholecystic fluid. There is no sonographic Crawford sign. The common bile duct is normal in caliber measuring 2 mm. Right Kidney: The right kidney measures 12.4 cm in length. The right kidney is unremarkable, without evidence of masses, hydronephrosis, or calculi. Pancreas: The pancreatic head, neck, and body are unremarkable. The pancreatic tail is obscured by bowel gas. Abdominal aorta and inferior vena cava: The visualized portions of the abdominal aorta and inferior vena cava are normal in caliber. Assessment & Plan Assessment & Plan (1) Elevated LFTs: Code(s): R79.89 - Other specified abnormal findings of blood chemistry Category: Medical (2) NAFL (nonalcoholic fatty liver): Code(s): K76.0 - Fatty (change of) liver, not elsewhere classified Category: Medical Plan Long discussion with patient about dietary choices. Patient is already changing her diet. NAFLD diet recommendation discussed with patient. List of food recommended as well as list of food to avoid given to patient. Patient will repeat liver panel today as well as liver fibrosis panel. She will return in 6 months to re-evaluate. Recommended weight loss and exercise. If her levels are still elevated will order additional blood work to rule out any autoimmune disorders that might be affecting her liver. However since she changed her diet and eliminated alcohol her last levels were much improved. Patient is agreeable to current plan of care and verbalizes understanding of instructions. She was given the opportunity to ask questions and all questions answered. Thank you for allowing me to participate in her care Orders: Orders Liver Fibrosis Pnl Today K76.0 - Fatty (change of) liver, not elsewhere classified Liver Panel Today R74.01 - Elevation of levels of liver transaminase levels US abdomen joseph w elastography 6 Months K76.0 - Fatty (change of) liver, not elsewhere classified Liver Panel 6 Months R74.01 - Elevation of levels of liver transaminase levels Coding Level of Care Code New Pt Level 3 (31930) Diagnoses Elevated LFTs R79.89 NAFL (nonalcoholic fatty liver) K76.0 Time Spent (min) 40 Comment 30 minutes spent with patient and additional 10 minutes spent reviewing her records
[2024-11-23 15:23] VITALS: BP 136/92; PULSE 84; O2SAT 97; BMI 31.3
== END 2024-11-23 15:42 | disposition home or self-care (01) ==
LOC: HO.HGI 15:12
PROVIDERS: PCP Physician Assistant; Visit Provider Nurse Practitioner Family
DX: R79.89 Other specified abnormal findings of blood chemistry (principal); K76.0 Fatty (change of) liver, not elsewhere classified
CPT/HCPCS: 99203

== ENCOUNTER 2024-11-23 15:11 | Outpatient (REF) | payer OTHER, SELFPAY ==
[2024-11-23 17:44] LABS: Alanine Aminotransferase 36 U/L (0-31); Albumin Level 4.8 g/dL (3.5-5.0); Alkaline Phosphatase 70 U/L (39-117); Anion Gap 13 (12-20); Aspartate Amino Transferase 27 U/L (5-31); Bilirubin Direct 0.1 mg/dL (0.0-0.5); Bilirubin Total 0.3 mg/dL (0.0-1.0); Blood Urea Nitrogen 23 mg/dL (9-16); Calcium 9.5 mg/dL (8.4-10.2); Carbon Dioxide 26 mmol/L (22-29); Chloride 102 mmol/L (96-108); Estimated Glomerular Filt Rate > 60; Glucose Random 82 mg/dL (60-115); Potassium 3.9 mmol/L (3.3-5.1); Sodium 137 mmol/L (135-145); Total Protein 7.7 g/dL (6.5-8.0)
[2024-11-23 18:00] LABS: TSH reflex Free T4 3.03 uIU/mL (0.32-4.0)
[2024-11-29 02:09] LABS: FIB-ALT 25 U/L (6-29); FIB-Alpha-2-Macroglobulin 136 mg/dL (106-279); FIB-Apolipoprotein A1 152 mg/dL (101-198); FIB-GGT 78 U/L (3-55); FIB-Haptoglobin 115 mg/dL (43-212); FIB-Total Bilirubin 0.3 mg/dL (0.2-1.2); Liver Fibrosis Score 0.09; Liver Fibrosis Stage F0; Nec Inflam Act Grade A0; Nec Inflam Act Score 0.08
== END 2024-11-23 15:12 | disposition home or self-care (01) ==
LOC: HO.LAB 15:11
PROVIDERS: PCP Physician Assistant; Visit Provider Nurse Practitioner Family
DX: K76.0 Fatty (change of) liver, not elsewhere classified (principal); R74.01 Elevation of levels of liver transaminase levels; I10 Essential (primary) hypertension; E03.9 Hypothyroidism, unspecified
CPT/HCPCS: 36415; 80053; 81596; 82248; 84443

== ENCOUNTER 2025-01-28 07:46 | Outpatient (REF) | payer OTHER, SELFPAY ==
[2025-01-28 08:35] LABS: Hematocrit 38.4 % (37.0-47.0); Hemoglobin 13.2 g/dl (12.0-16.0); Mean Corpuscular HGB Conc 34.4 g/dl (31.0-35.0); Mean Corpuscular Hemoglobin 28.6 pg (27.0-33.0); Mean Corpuscular Volume 83.1 fL (80.0-98.0); NRBC Abs Auto 0.000 X10*3/uL (0.0-0.012); NRBC Pct Auto 0.0 /100WBC (0.0-0.2); Platelet Count 279 X10*3/uL (160-400); Red Blood Count 4.62 X10*6/uL (4.20-5.50); White Blood Count 7.5 X10*3/uL (4.8-10.8)
[2025-01-28 09:11] LABS: Alanine Aminotransferase 38 U/L (0-31); Albumin Level 4.6 g/dL (3.5-5.0); Alkaline Phosphatase 69 U/L (39-117); Anion Gap 11 (12-20); Aspartate Amino Transferase 30 U/L (5-31); Blood Urea Nitrogen 22 mg/dL (9-16); Calcium 8.9 mg/dL (8.4-10.2); Carbon Dioxide 24 mmol/L (22-29); Chloride 107 mmol/L (96-108); Cholesterol 263 mg/dL (<200); Estimated Glomerular Filt Rate > 60; HDL Cholesterol 37 mg/dL (>40); Potassium 4.3 mmol/L (3.3-5.1); Sodium 138 mmol/L (135-145); Total Protein 7.5 g/dL (6.5-8.0); Triglycerides 138 mg/dL (<150)
[2025-01-28 10:38] LABS: Free T4 (Free Thyroxine) 0.89 ng/dL (0.71-1.85)
== END 2025-01-28 07:47 | disposition home or self-care (01) ==
LOC: HO.LAB 07:46
PROVIDERS: PCP Physician Assistant; Visit Provider Physician Assistant
DX: E78.2 Mixed hyperlipidemia (principal); I10 Essential (primary) hypertension; E03.9 Hypothyroidism, unspecified
CPT/HCPCS: 36415; 80053; 80061; 84439; 84443; 85027

== ENCOUNTER 2025-01-31 11:28 | Outpatient (AMB) | payer OTHER, SELFPAY ==
--- NOTE | 2025-01-31 11:31 | A.OFFPC_ITS ---
Vital Signs 01/31/25 11:32 Height 5 ft 5 in Weight 192 lb BMI 31.9 BP 130/80 Blood Pressure Location Lt brachial Position Sitting Pulse 69 Pulse Source Pulse Oximeter Temp 97.1 F Temp Source Temporal Artery Scan Pulse Oximetry (%) 98 Oxygen Delivery Method Room Air Intake Visit Reasons: PE Intake Note: Patient is here today for a physical. Bullet Lubricant Mixer Required: No Certified Orthotist Practice Manager: Not Required per policy Accompanied by: Self / Same As Patient Allergies simvastatin Adverse Reaction (Intermediate, Verified 01/31/25 11:52) Muscle cramps Medication List - Last Reconciled 01/31/25 by Josuha Cam PA-C berberine chloride mg PO cholecalciferol (vitamin D3) 25 mcg PO DAILY citalopram 40 mg PO DAILY 90 days creatine monohydrate ea PO lisinopril-hydrochlorothiazide 10-12.5 mg 1 tab PO DAILY 90 days miscellaneous medical supply (Blood Pressure Cuff) As directed omega-3 fatty acids 1,000 mg PO DAILY phosphatidylcholine mg PO Tobacco use date assessed: 01/31/25 Dental Screening Dental Screen Date: 01/31/25 Did you have a dental visit in the last 12 months?: Yes Did you have a dental problem in the last 6 months where you did not have access to dental care?: No Was dental information given to patient?: Patient has dentist HPI PE HPI Details Patient is a 49 y/o F here today for annual physical. Patient's pmhx is significant for hypothyroism, HTN, hld. ? .. ? Hypothyroidism: The patient has a history of hypothyroidism, with a recent TSH level of 4.01, slightly above the normal range. She previously discontinued levothyroxine without noticing any symptomatic changes. The plan is to resume levothyroxine to manage thyroid function and potentially improve lipid levels. .. ? Hypertension:? Blood pressure acceptable today in office. ? She reports monitoring blood pressure at home have been stable. She denies any chest pain, headaches or dizziness.. ?She was started on lisinopril hydrochlorothiazide which has made a small improvement in her blood pressures. Otherwise denies any headaches, chest discomfort her vision issues. PLAN: Consider restarting statin therapy though will regulate thyroid 1st. Will also give endocrinology referral due to her seemingly familial hypercholesterolemia .. Hyperlipidemia: The patient has a history of hyperlipidemia, with cholesterol levels previously recorded at 268 mg/dL and currently at 263 mg/dL. She has been unable to tolerate statins due to muscle aches and elevated liver enzymes, which have improved since discontinuing the medication. Family history reveals a significant predisposition to hyperlipidemia, with multiple relatives affected. PLAN: Will restart levothyroxine 75 mcg and retest thyroid and cholesterol panel ? .. ? Anxiety: Patient denies any SI or HI. Patient is followed by a therapist she talks to biweekly. Most of her anxiety is stress related due to her job. ? Patient continues Celexa 40 mg which has been working well to reduce her anxiety.? She is now speaking with a mental health therapist and is feeling better. .. Elevated LFTs:? Most recent liver enzymes slightly elevated though better. Ultrasound of abdomen does show evidence of fatty liver/ hepatomegaly Again advised on a reducing her weight and reducing alcohol intake. Vaccine:? Up-to-date with COVID vaccine, up-to-date with tetanus vaccine, UTD with Tdap .. BISQUE CLEANER: Followed by security expert at [facility]. Colon cancer screening: Cologuard done in 2022 normal, repeat 3 years .. Mammo:-? done in August of 2024-BI-RADS 1 Laboratory Tests 12/26/21 01/01/23 01/01/23 10:06 07:50 07:50 Hgb 12.8 Creatinine 0.92 ALT 60 H 35 H Triglycerides 181 Cholesterol 177 TSH 2.52 Urine Microalbumin 01/01/23 07:50 Hgb Creatinine ALT Triglycerides Cholesterol TSH Urine Microalbumin < 5.0 Laboratory Tests 01/01/23 01/19/24 11/23/24 07:50 08:02 15:54 Hgb 12.4 Creatinine 0.88 AST 31 115 H ALT 35 H 99 H 36 H Liver GGT 78 H Liver Fibrosis Sco re 0.09 Cholesterol 194 LDL Cholesterol, C alc 118 H TSH 3.03 01/28/25 07:58 Hgb Creatinine 0.94 AST ALT 38 H Liver GGT Liver Fibrosis Sco re Cholesterol 263 H LDL Cholesterol, C alc 199 H TSH 4.01 H PFSH Medical History NAFL (nonalcoholic fatty liver) Surgical History History of mandibular surgery History of repair of cleft lip History of rhinoplasty Family History Father Hypertension Mother Hypertension Hypercholesterolemia Myocardial infarction, Onset Age: 55 Maternal Aunt Heart disease Social History (Updated 01/31/25 @ 11:57 by Joshua Cam PA-C) Housing: Condominium Alcohol intake: current Alcohol intake frequency: a few times a week Patient Tobacco Use Status: Former Tobacco user Tobacco use type: Cigarette e-Cigarette/Vaping Use: Never Used Second Hand Smoke Exposure: Yes service: No Current occupational status: employed 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 1. Little interest or pleasure in doing things: not at all 2. Feeling down, depressed, or hopeless: not at all 3. Trouble falling or staying asleep, or sleeping too much: not at all 4. Feeling tired or having little energy: not at all 5. Poor appetite or overeating: not at all 6. Feeling bad about yourself - or that you are a failure or have let yourself or your family down: not at all 7. Trouble concentrating on things, such as reading the newspaper or watching television: not at all 8. Moving or speaking so slowly that other people could have noticed. Or the opposite - being so fidgety or restless that you have been moving around a lot more than usual: not at all 9. Thoughts that you would be better off or of hurting yourself in some way: not at all Total score: 0 Depression Screening Interpretation: Negative Depression Screening Done: Yes 60765 - PHQ-9 Billing: Yes Source: Developed by Drs. Christopher Payne, Cindy Frye, Owen Mcneal and colleagues, with an educational francisca from [employer]. Thrive Questionnaire Date Thrive assessed: 01/25/25 I am a: Patient What is your living situation today?: I have a steady place to live Within the past 12 months, did the food you bought not last and you didn't have the money to get more?: Never true Within the past 12 months, did you worry whether your food would run out before you got money to buy more?: Never true Do you have trouble paying for medicines?: No Do you have trouble getting transportation to medical appointments?: No Do you have trouble paying your heating and electricity bill?: No Do you have trouble taking care of your child, family member or friend?: No Do you have trouble with day-to-day activities such as bathing, preparing meals, shopping, managing finances, etc.?: No Are you currently unemployed and looking for a job?: No Are you interested in more education?: No Please select the resources that you would like help with: None Currently or been in a relationship where the following occur: No concerns reported THRIVE Score: 0 AUDIT C Alcohol Use Questionnaire (AUDIT-C) 1. How often do you have a drink containing alcohol?: 2-3 times a week 2. How many drinks containing alcohol do you have on a typical day when you are drinking?: 1 or 2 3. How often do you have six or more drinks on one occasion?: Monthly Total Score: 5 VIKTOR-7 AMB Questionnaire VIKTOR-7 Date VIKTOR - 7 assessed: 01/31/25 Feeling nervous, anxious, or on edge: 0 = Not at all Not being able to stop or control worryin = Not at all Worrying too much about different things: 0 = Not at all Trouble relaxin = Not at all Being so restless that it is hard to sit still: 0 = Not at all Becoming easily annoyed or irritable: 0 = Not at all Feeling afraid as if something awful might happen: 0 = Not at all Total VIKTOR-7 score (0-4 normal; 5-9 mild; 10-14 moderate; 15-21 severe): 0 Source: Developed by Drs. Christopher Payne, Cindy Frye, Owen Mcneal and colleagues, with an educational francisca from [employer]. VIKTOR-7 Assessment Billing VIKTOR-7 Assessment Tool: VIKTOR-7 Assessment 95330 Review of Systems Const Denies body aches, Denies chills, Denies excessive sweating, Denies fatigue, Denies fever(s) and Denies headache(s) Eyes Denies blurry vision ENT Denies dysphagia, Denies vertigo, Denies dizziness, Denies headache(s), Denies hearing loss and Denies tinnitus Card Denies chest pain, Denies chest pain with activity, Denies syncope, Denies irregular heart rhythm and Denies dyspnea Resp Denies chest congestion, Denies cough, Denies hemoptysis, Denies dyspnea and Denies wheezing GI Denies abdominal pain, Denies melena, Denies hematochezia, Denies coffee ground emesis, Denies dysphagia, Denies diarrhea, Denies nausea and Denies vomiting Denies urinary frequency, Denies dysuria, Denies urinary hesitancy and Denies urinary urgency Musc Denies arthralgias, Denies limited range of motion, Denies muscle cramps and Denies muscle weakness Skin/Breast Denies rash and Denies skin ulcer Neuro Denies Abnormal speech present, Denies confusion, Denies vertigo, Denies dizziness, Denies syncope, Denies headache(s), Denies memory loss and Denies seizure-like activity Psych Denies anxiety, Denies confusion, Denies depression, Denies memory loss, Denies panic attacks and Denies paranoia Endo Denies excessive sweating, Denies fatigue, Denies flushing, Denies polydipsia and Denies polyuria Aller/Immun Denies wheezing Physical exam (Primary Care) Vital Signs: Last Vital Signs Temp 97.1 F 01/31/25 11:32 Pulse 69 01/31/25 11:32 BP 130/80 01/31/25 11:32 Pulse Ox 98 01/31/25 11:32 Oxygen Delivery Method Room Air 01/31/25 11:32 BMI result Body Mass Index 31.9 BMI Assessment/Plan discussion: High BMI High, discussed plan: lifestyle, weight reduction, dietary and physical activity Tobacco/Smoking Status: Tobacco use Status Tobacco use date assessed 01/31/25 01/31/25 11:46 Patient Tobacco Use Status Former Tobacco user 01/31/25 11:57 Tobacco use type Cigarette 01/31/25 11:57 e-Cigarette/Vaping Use Never Used 01/31/25 11:57 PHQ-9: PHQ-9 Score PHQ-9: Total score 0 01/31/25 12:20 Depression Screening Interpretation: Negative Thrive Assessment: Date of Thrive Assessment Date Thrive assessed 07/29/25 08/04/25 11:46 Currently or been in a relationship where the following occur: No concerns reported Const General: cooperative, comfortable, no acute distress, alert and awake; No confusion Orientation/consciousness: oriented to person, oriented to place, patient oriented x3 and No confusion HENMT Head: Yes normocephalic Ears: external ears normal and TM's normal bilaterally Face and sinus: No sinus tenderness Mouth: Normal oral and palatal mucosa present and tongue normal Teeth and gingiva: dentition normal and gingiva normal Throat: Yes posterior oropharynx normal, Yes tonsils normal and Yes uvula midline Eyes Conjunctivae: conjunctivae normal Sclerae: sclerae normal Pupils: Equal, round and reactive pupils present EOM: EOMs intact bilaterally Direct Ophthalmoscopy: No no photophobia Neck Neck: Yes no lymphadenopathy, No tender and Yes no JVD Thyroid: Thyroid normal Carotids: no bruits Chest Chest palpation & inspection: no tenderness Resp Effort & Inspection: normal respiratory effort, no audible wheezes, not labored and no stridor Auscultation: no crackles, no rales, no rhonchi and no wheezes Cardio Jugular venous distension: no JVD Rate: regular rate, not bradycardic and not tachycardic Rhythm: regular rhythm Bruits: no carotid bruits Peripheral pulses: Peripheral pulses 2+ throughout GI Inspection: Yes normal to inspection, No abdominal wall ecchymosis and No visible herniation Palpation (GI): Soft to palpation, nontender, no guarding, not rigid and No hepatosplenomegaly present Auscultation: normoactive bowel sounds General: Yes no CVA tenderness Back/Spine/Pelvis Back: no CVA tenderness and No back tenderness Cervical Spine: cervical ROM normal Thoracic/Lumbar Spine: thoracic and lumbar spine normal to inspection, straight leg raise negative bilaterally, No thoraco-lumbar ROM limited and No lumbar spinal tenderness Skin Lesions: no lesions Rashes: no rashes Wounds: no wounds Neuro General: oriented to person, oriented to place, patient oriented x3, CN's II-XI intact bilaterally and No confusion Cranial nerves: Yes Equal, round and reactive pupils present and Yes Normal accommodation reflex present Cognition (Neuro): normal cognition Speech: No Abnormal speech present Gait exam (Neuro): Normal gait present Motor exam (neuro): 5/5 motor strength present throughout Extrem Right upper extremity: full ROM; no cyanosis Left upper extremity: full ROM; no cyanosis Right lower extremity: no edema Left lower extremity: no edema Psych Appearance: grossly normal Mental Status: mental status grossly normal Affect: normal affect Attitude: cooperative Thought process: Normal thought process present Coding Level of Care Code Est Pt Prev Care 40-64y(96044) Diagnoses Annual physical exam Z00.00 Hypothyroidism, unspecified type E03.9 Hypothyroidism type: unspecified Mixed hyperlipidemia E78.2 Hyperlipidemia type: mixed hyperlipidemia Essential hypertension I10 Hypertension type: essential hypertension Class 1 obesity E66.811 Additional Codes VIKTOR-7 Assessment Billing - VIKTOR-7 Assessment Tool: VIKTOR-7 Assessment 79047 ([id number]) PHQ-9 - 68833 - PHQ-9 Billing: Yes ([id number]) Assessment & Plan Assessment & Plan (1) Annual physical exam: Code(s): Z00.00 - Encounter for general adult medical examination without abnormal findings Category: Medical Plan: As per HPI (2) Hypothyroid: Code(s): E03.9 - Hypothyroidism, unspecified Category: Medical Qualifiers: Hypothyroidism type: unspecified Qualified Code(s): E03.9 - Hypothyroidism, unspecified Plan: The patient's TSH level is slightly elevated at 4.01, indicating hypothyroidism. She previously discontinued levothyroxine but will resume it to manage thyroid function and potentially improve lipid levels. (3) HLD (hyperlipidemia): Code(s): E78.5 - Hyperlipidemia, unspecified Category: Medical Qualifiers: Hyperlipidemia type: mixed hyperlipidemia Qualified Code(s): E78.2 - Mixed hyperlipidemia Plan: The patient has a history of hyperlipidemia with cholesterol levels at 263 mg/dL and LDL at 199 mg/dL. She has been unable to tolerate statins due to muscle aches and elevated liver enzymes. A referral to an lehr stripper is planned to explore alternative treatments, including potential non-statin medications or injections like Praluent. (4) HTN (hypertension): Code(s): I10 - Essential (primary) hypertension Category: Medical Qualifiers: Hypertension type: essential hypertension Qualified Code(s): I10 - Essential (primary) hypertension Plan: Patient's blood pressure acceptable today in office. Will continue her current dose of lisinopril hydrochlorothiazide with goal blood pressure to remain below 140/90 (5) Class 1 obesity: Code(s): E66.811 - Obesity, class 1 Category: Medical Plan: Patient does understand her BMI is over 30 has been working on being more physically active and adapting to better eating habits to reduce her weight Orders: Orders Lipid Panel Today E78.2 - Mixed hyperlipidemia Comprehensive [place]. Panel Fast Today E78.2 - Mixed hyperlipidemia TSH reflex Free T4 Today E03.9 - Hypothyroidism, unspecified Referrals Endocrinology Referral E78.2 - Mixed hyperlipidemia Medications: New levothyroxine 75 mcg PO DAILY 90 caps 1RF 90 days E78.2 - Mixed hyperlipidemia
[2025-01-31 11:32] VITALS: BP 130/80; PULSE 69; TEMP 36.2; O2SAT 98; BMI 31.9
== END 2025-01-31 12:19 | disposition home or self-care (01) ==
LOC: HO.HMCH 11:29
PROVIDERS: PCP Physician Assistant; Visit Provider Physician Assistant
DX: Z00.00 Encounter for general adult medical examination without abnormal findings (principal); E03.9 Hypothyroidism, unspecified; E78.2 Mixed hyperlipidemia; I10 Essential (primary) hypertension; E66.811 Obesity, class 1

== ENCOUNTER → 2025-01-31 11:28 | Outpatient (BNVA) | payer OTHER, SELFPAY | PROVIDERS: PCP Physician Assistant; Visit Provider Physician Assistant | DX: Z00.00 Encounter for general adult medical examination without abnormal findings (principal); E03.9 Hypothyroidism, unspecified; E78.2 Mixed hyperlipidemia; I10 Essential (primary) hypertension; E66.811 Obesity, class 1; Z68.31 Body mass index [BMI] 31.0-31.9, adult; F41.9 Anxiety disorder, unspecified; Z79.899 Other long term (current) drug therapy; Z13.31 Encounter for screening for depression; Z13.39 Encounter for screening examination for other mental health and behavioral disorders | CPT/HCPCS: 96127 ==

== ENCOUNTER 2025-04-01 08:53 | Outpatient (AMB) | payer OTHER, SELFPAY ==
[2025-04-01 08:57] VITALS: BP 122/70; PULSE 81; O2SAT 98; BMI 32.4
--- NOTE | 2025-04-01 08:57 | A.OFFVIS_ITS ---
Vital Signs 04/01/25 08:57 Height 5 ft 5 in Weight 194 lb 7.163 oz BMI 32.4 BP 122/70 Blood Pressure Location Rt brachial Position Sitting Pulse 81 Pulse Source Pulse Oximeter Pulse Oximetry (%) 98 Oxygen Delivery Method Room Air Intake Visit Reasons: Mixed hyperlipidemia Intake Note: Patient present today for mixed hyperlipidemia. Manager Sterile Processing Required: No Accompanied by: Self / Same As Patient Allergies simvastatin Adverse Reaction (Intermediate, Verified 04/01/25 09:01) Muscle cramps Medication List - Last Reconciled 04/01/25 by Sera Hearn MD berberine chloride mg PO cholecalciferol (vitamin D3) 25 mcg PO DAILY citalopram 40 mg PO DAILY 90 days creatine monohydrate ea PO levothyroxine 75 mcg PO DAILY 90 days lisinopril-hydrochlorothiazide 10-12.5 mg 1 tab PO DAILY 90 days miscellaneous medical supply (Blood Pressure Cuff) As directed omega-3 fatty acids 1,000 mg PO DAILY phosphatidylcholine mg PO HPI Comments Details: 49 yo female here today for dyslipidemia. was on simvastatin since her 20s, stopped January 2024, due to LFT elevation Restarted Jun 2024, simvastatin 40 mg daily but got severe muscles and joint pains, took it for for 2 weeks and then stopped , pains resolved as soon she stopped Patient had elevated liver enzymes since December 2023. Patient changed her diet and her liver enzymes have improved. Per GI findings of JENNIE, was advised to make dietary changes. liver enzymes have improved despite not much weight loss. No other statin tried. no history of DM No history of CAD/stroke mother : [place] at 55 years Maternal grandfather : CAD Lots of cousins with high cholesterol levels Scores by [place] and Dino broom criteria both indicate possible familial hypercholesterolemia ASCVD lifetime risk 50 percent former smoker Quit 5 years ago smoked from college till early 20s , then again from 2019 to 2020 exercise : she is a adjunct instructor chemistry , does a lot of yoga and walks 15 to 20 mins a day Does eat red meat, twice a week Physical exam General: sitting comfortably in no acute distress HEENT: normocephalic/atraumatic, Neck: supple, symmetrical, no thyromegaly , no dorsocervical or supraclavicular fat pads Cardiac: normal heart sounds Pulm: normal breath sounds B/L, no added breath sounds Abd: not distended, no tenderness Extremities: no edema, no signs of myxedema Neuro: AAO x3, Speech: normal, no facial droop, moving all 4 extremities Laboratory Tests 01/01/23 01/19/24 07/27/24 07:50 08:02 08:56 Triglycerides 181 173 H 191 H Cholesterol 177 194 268 H LDL Cholesterol, Calc 94 118 H 190 H HDL Cholesterol 47 42 40 L 01/28/25 07:58 Triglycerides 138 Cholesterol 263 H LDL Cholesterol, Calc 199 H HDL Cholesterol 37 L PFS Medical History NAFL (nonalcoholic fatty liver) Surgical History History of mandibular surgery History of repair of cleft lip History of rhinoplasty Family History Father Hypertension Mother Hypertension Hypercholesterolemia Myocardial infarction, Onset Age: 55 Maternal Aunt Heart disease Social History [facility] Alcohol intake: current Alcohol intake frequency: a few times a week Patient Tobacco Use Status: Former Tobacco user Tobacco use type: Cigarette e-Cigarette/Vaping Use: Never Used Second Hand Smoke Exposure: Yes service: No Current occupational status: employed 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 She has had history of elevated LDL and cholesterol levels since her 20s. She used to be on simvastatin 40 mg daily up until summer 2023 when she was noted to have elevated liver enzymes and this was stopped. The liver enzymes were only mildly elevated and did not improve with stopping the statin. However recently she had GI evaluation and was thought to have metabolic associated steatosis liver dysfunction with some improvement in liver enzymes after changes in her diet. She has not lost much weight with the dietary changes. She is following with GI for this. Once him was statin was restarted in June 2024, patient had severe muscle and joint aches, could not tolerate the medication and stopped it within 2 weeks. No other statin was tried. Since only simvastatin was tried, we will put her on of the statin. Plus given her LDL is greater than 190 mg/dL she meets criteria for high-intensity statin with a goal of reduction of LDL by at least 50%. We will start her on atorvastatin 40 mg daily. I have asked her to reach out to us if she has any muscle aches or pains or cramps. We also discussed signs of liver toxicity and to go to the ED if that happens. We will also recheck her AST and ALT levels in 3-4 weeks. First we can do some tire the area with different statins. If she does not tolerate the atorvastatin 40 mg daily, we could reduce it to every other day, or if even that does not work we can switch her to rosuvastatin. By both that [place] criteria and Dino brocortez criteria she possibly has familial hypercholesterolemia. If she can not tolerate statins, we can try other options such as ezetimibe, bempedoic acid, PCSK9 inhibitors. Plan: -start atorvastatin 40 mg daily -repeat blood work in 4 weeks for liver enzymes -report side effects -plan to repeat lipid panel prior to her next follow up me in August 2025 Plan I spent 45 minutes in reviewing the record, seeing the patient and documenting in the medical record. Orders: Orders Aspartate Amino Transferase 4 Weeks E78.5 - Hyperlipidemia, unspecified Alanine Aminotransferase 4 Weeks E78.5 - Hyperlipidemia, unspecified Medications: New atorvastatin (Lipitor) 40 mg PO BEDTIME 90 tabs 3RF E78.5 - Hyperlipidemia, unspecified Patient Instructions: Start atorvastatin 40 mg daily at bedtime Do blood work for liver enzymes in 4 weeks or so We will reach out with the results Follow up in August 2025, he will also need blood work prior to that appointment, please call the office 2 weeks or so prior to get blood work orders I please report any side effects of the atorvastatin to us either through the portal or calling the office during office hours Watch out for muscle cramps, joint aches and pains If you start having any nausea, vomiting, pills stools, dark urine, jaundiced appearance, please go to the emergency room for those are signs of liver toxicity Coding Level of Care Code New Pt Level 4 (50435) Diagnoses Dyslipidemia (high LDL; low HDL) E78.5 Time Spent (min) 45
== END 2025-04-01 09:51 | disposition home or self-care (01) ==
LOC: HO.ENCR 08:54
PROVIDERS: PCP Physician Assistant; Visit Provider Student in an Organized Health Care Education/Training Program
DX: E78.5 Hyperlipidemia, unspecified (principal)
CPT/HCPCS: 99204

== ENCOUNTER 2025-04-29 09:22 | Outpatient (REF) | payer OTHER, SELFPAY ==
[2025-04-29 11:15] LABS: Alanine Aminotransferase 43 U/L (0-31); Albumin Level 4.6 g/dL (3.5-5.0); Alkaline Phosphatase 73 U/L (39-117); Anion Gap 10 (12-20); Aspartate Amino Transferase 35 U/L (5-31); Blood Urea Nitrogen 20 mg/dL (9-16); Calcium 9.4 mg/dL (8.4-10.2); Carbon Dioxide 24 mmol/L (22-29); Chloride 108 mmol/L (96-108); Cholesterol 234 mg/dL (<200); Estimated Glomerular Filt Rate > 60; HDL Cholesterol 37 mg/dL (>40); Potassium 4.4 mmol/L (3.3-5.1); Sodium 138 mmol/L (135-145); Total Protein 7.4 g/dL (6.5-8.0); Triglycerides 149 mg/dL (<150)
== END 2025-04-29 09:23 | disposition home or self-care (01) ==
LOC: HO.LAB 09:22
PROVIDERS: PCP Physician Assistant; Visit Provider Physician Assistant
DX: E78.2 Mixed hyperlipidemia (principal); E03.9 Hypothyroidism, unspecified
CPT/HCPCS: 36415; 80053; 80061; 84443

== ENCOUNTER 2025-05-04 14:57 | Outpatient (AMB) | payer OTHER, SELFPAY ==
[2025-05-04 15:00] VITALS: BP 136/92; PULSE 85; TEMP 36.2; O2SAT 94; BMI 31.8
--- NOTE | 2025-05-04 15:00 | A.OFFPC_ITS ---
Vital Signs 05/04/25 15:00 Height 5 ft 5 in Weight 191 lb 6 oz BMI 31.8 BP 136/92 H Blood Pressure Location Lt brachial Position Sitting Pulse 85 Pulse Source Pulse Oximeter Temp 97.1 F Temp Source Temporal Artery Scan Pulse Oximetry (%) 94 Oxygen Delivery Method Room Air Intake Visit Reasons: f/u HLD/ HTN Allergies atorvastatin Adverse Reaction (Intermediate, Verified 05/04/25 15:12) Joint Pain simvastatin Adverse Reaction (Intermediate, Verified 05/04/25 15:07) Muscle cramps Medication List - Last Reconciled 05/04/25 by Joshua Cam PA-C atorvastatin (Lipitor) 40 mg PO BEDTIME berberine chloride mg PO cholecalciferol (vitamin D3) 25 mcg PO DAILY citalopram 40 mg PO DAILY 90 days creatine monohydrate ea PO levothyroxine 75 mcg PO DAILY 90 days lisinopril-hydrochlorothiazide 10-12.5 mg 1 tab PO DAILY 90 days miscellaneous medical supply (Blood Pressure Cuff) As directed omega-3 fatty acids 1,000 mg PO DAILY phosphatidylcholine mg PO Tobacco use date assessed: 05/04/25 Dental Screening Dental Screen Date: 05/04/25 Did you have a dental visit in the last 12 months?: Yes Did you have a dental problem in the last 6 months where you did not have access to dental care?: No Was dental information given to patient?: Patient has dentist HPI f/u HLD/ HTN HPI Details Patient is a 49 y/o F here today for a follow-up visit. Patient's pmhx is significant for hypothyroism, HTN, hld. ? .. ? Hypothyroidism: The patient has a history of hypothyroidism, most recent TSH stabilize on levothyroxine 75 mcg. Interestingly enough her lipid panel also did improved by 30 point reduction in the total cholesterol and LDL. PLAN: Will increase her levothyroxine dose to 88 mcg and recheck TSH and lipid panel in the next 3 months. .. ? Hypertension:? Blood pressure acceptable today in office. ? She reports monitoring blood pressure at home have been stable. She denies any chest pain, headaches or dizziness.. ?She was started on lisinopril hydrochlorothiazide which has made a small improvement in her blood pressures. Otherwise denies any headaches, chest discomfort her vision issues. PLAN: Consider restarting statin therapy though will regulate thyroid 1st. Will also give endocrinology referral due to her seemingly familial hypercholesterolemia .. Hyperlipidemia: She has establish care with the lens coater whom recommended trialing a new statin (atorvastatin). She recently had lab work which showed improvement, with her total cholesterol decreasing from 263 to 234 mg/dL and LDL from 199 to 168 mg/dL. Her thyroid function has normalized after restarting her thyroid medication. The patient has a history of statin intolerance. She previously took a statin for 20 years without problems but had to stop due to concerns about her liver enzymes. Upon attempting to restart statin therapy with simvastatin and more recently atorvastatin, she experienced significant joint pain and muscle aches, which resolved within days of discontinuation. She took atorvastatin for about three weeks recently. The patient reports making significant dietary changes, focusing on macronutrients, eating healthy foods like turkey and vegetables, and avoiding fried foods. .. Elevated LFTs:? Most recent liver enzymes slight elevation in the setting of starting statin therapy. Ultrasound of abdomen does show evidence of fatty liver/ hepatomegaly Again advised on a reducing her weight and reducing alcohol intake [facility] Medical History Dyslipidemia (high LDL; low HDL) NAFL (nonalcoholic fatty liver) Surgical History History of mandibular surgery History of repair of cleft lip History of rhinoplasty Family History Father Hypertension Mother Hypertension Hypercholesterolemia Myocardial infarction, Onset Age: 55 Maternal Aunt Heart disease [facility] Alcohol intake: current Alcohol intake frequency: a few times a week Patient Tobacco Use Status: Former Tobacco user Tobacco use type: Cigarette e-Cigarette/Vaping Use: Never Used Second Hand Smoke Exposure: Yes service: No Current occupational status: employed Current occupation: self employed - [employer] Cognitive needs: No Hearing needs: No Vision needs: No Questionnaire PHQ-9 Over the last 2 weeks, how often have you been bothered by any of the following problems? 1. Little interest or pleasure in doing things: not at all 2. Feeling down, depressed, or hopeless: not at all 3. Trouble falling or staying asleep, or sleeping too much: not at all 4. Feeling tired or having little energy: not at all 5. Poor appetite or overeating: not at all 6. Feeling bad about yourself - or that you are a failure or have let yourself or your family down: not at all 7. Trouble concentrating on things, such as reading the newspaper or watching television: not at all 8. Moving or speaking so slowly that other people could have noticed. Or the opposite - being so fidgety or restless that you have been moving around a lot more than usual: not at all 9. Thoughts that you would be better off or of hurting yourself in some way: not at all Total score: 0 Depression Screening Interpretation: Negative Depression Screening Done: Yes Source: Developed by Drs. Christopher Payne, Cindy Frye, Owen Mcneal and colleagues, with an educational francisca from [employer]. Thrive Questionnaire Date Thrive assessed: 01/25/25 I am a: Patient What is your living situation today?: I have a steady place to live Within the past 12 months, did the food you bought not last and you didn't have the money to get more?: Never true Within the past 12 months, did you worry whether your food would run out before you got money to buy more?: Never true Do you have trouble paying for medicines?: No Do you have trouble getting transportation to medical appointments?: No Do you have trouble paying your heating and electricity bill?: No Do you have trouble taking care of your child, family member or friend?: No Do you have trouble with day-to-day activities such as bathing, preparing meals, shopping, managing finances, etc.?: No Are you currently unemployed and looking for a job?: No Are you interested in more education?: No Please select the resources that you would like help with: None Currently or been in a relationship where the following occur: No concerns reported THRIVE Score: 0 AUDIT C Alcohol Use Questionnaire (AUDIT-C) 1. How often do you have a drink containing alcohol?: 2-3 times a week 2. How many drinks containing alcohol do you have on a typical day when you are drinking?: 1 or 2 3. How often do you have six or more drinks on one occasion?: Less than monthly Total Score: 4 VIKTOR-7 AMB Questionnaire VIKTOR-7 Date VIKTOR - 7 assessed: 01/31/25 Feeling nervous, anxious, or on edge: 0 = Not at all Not being able to stop or control worryin = Not at all Worrying too much about different things: 0 = Not at all Trouble relaxin = Not at all Being so restless that it is hard to sit still: 0 = Not at all Becoming easily annoyed or irritable: 0 = Not at all Feeling afraid as if something awful might happen: 0 = Not at all Total VIKTOR-7 score (0-4 normal; 5-9 mild; 10-14 moderate; 15-21 severe): 0 Source: Developed by Drs. Christopher Payne, Cindy Frye, Owen Mcneal and colleagues, with an educational francisca from [employer]. Review of Systems Const Denies headache(s) Eyes Denies loss of vision ENT Denies vertigo, Denies dizziness, Denies headache(s) and Denies sore throat Card Denies chest pain, Denies leg edema and Denies lightheadedness Resp Denies cough, Denies hemoptysis and Denies wheezing GI Denies abdominal pain, Denies melena, Denies constipation, Denies diarrhea and Denies vomiting Denies urinary frequency, Denies dysuria and Denies urinary urgency Musc Denies arthralgias, Denies joint swelling, Denies numbness and Denies tingling Neuro Denies Abnormal speech present, Denies behavioral changes, Denies vertigo, Denies dizziness, Denies headache(s), Denies loss of vision, Denies memory loss, Denies numbness and Denies tingling Psych Denies anxiety, Denies behavioral changes, Denies depression, Denies memory loss and Denies panic attacks Wes/Lymph Denies easy bleeding and Denies easy bruising Aller/Immun Denies wheezing Physical exam (Primary Care) Vital Signs: Last Vital Signs Temp 97.1 F 05/04/25 15:00 Pulse 85 05/04/25 15:00 BP 136/92 H 05/04/25 15:00 Pulse Ox 94 05/04/25 15:00 Oxygen Delivery Method Room Air 05/04/25 15:00 BMI result Body Mass Index 31.8 Tobacco/Smoking Status: Tobacco use Status Tobacco use date assessed 05/04/25 05/04/25 15:03 Patient Tobacco Use Status Former Tobacco user 05/04/25 15:03 Tobacco use type Cigarette 05/04/25 15:03 e-Cigarette/Vaping Use Never Used 05/04/25 15:03 PHQ-9: PHQ-9 Score PHQ-9: Total score 0 05/05/25 07:44 Depression Screening Interpretation: Negative Thrive Assessment: Date of Thrive Assessment Date Thrive assessed 01/25/25 05/04/25 15:03 Currently or been in a relationship where the following occur: No concerns reported Const General: healthy appearing, no acute distress, alert and awake Nutritional Appearance: well nourished Orientation/consciousness: oriented to person, oriented to place and oriented to time HENMT Ears: TM's normal bilaterally General nose exam: Normal nasal mucous membranes and turbinates present Eyes Conjunctivae: conjunctivae normal Sclerae: sclerae normal Pupils: Equal, round and reactive pupils present Neck Neck: Yes no lymphadenopathy and Yes no JVD Thyroid: Thyroid normal Carotids: no bruits Resp Effort & Inspection: normal respiratory effort and not tachypneic Auscultation: no crackles, no rales, no rhonchi and no wheezes Cardio Rate: regular rate Rhythm: regular rhythm Heart sounds: no murmurs and normal S1 and S2 GI Palpation (GI): Soft to palpation, nontender, no hepatomegaly and no splenomegaly Auscultation: normal bowel sounds Skin General skin exam: no rashes or lesions noted and dry skin Neuro General: oriented to person, oriented to place and oriented to time Cranial nerves: Yes Equal, round and reactive pupils present Speech: No Abnormal speech present Gait exam (Neuro): Normal gait present Motor exam (neuro): no tremor noted Extrem Right upper extremity: full ROM Left upper extremity: full ROM Right lower extremity: full ROM; no edema Left lower extremity: full ROM; no edema Psych Mental Status: mental status grossly normal Speech and movement: Normal speech and movement present Affect: normal affect Attitude: cooperative Thought process: Normal thought process present Coding Level of Care Code Est Pt Level 4 (87114) Diagnoses Hypothyroidism, unspecified type E03.9 Hypothyroidism type: unspecified Mixed hyperlipidemia E78.2 Hyperlipidemia type: mixed hyperlipidemia Essential hypertension I10 Hypertension type: essential hypertension Class 1 obesity E66.811 Assessment & Plan Assessment & Plan (1) Hypothyroid: Code(s): E03.9 - Hypothyroidism, unspecified Category: Medical Qualifiers: Hypothyroidism type: unspecified Qualified Code(s): E03.9 - Hypothyroidism, unspecified Plan: The patient's TSH level has improved since being on levothyroxine 75 mcg, interestingly enough her cholesterol also has improved with regulation of her thyroid. Will try to optimize her TSH with an increased dose of the levothyroxine to 88 mcg and also see if cholesterol panel gets better.. (2) HLD (hyperlipidemia): Code(s): E78.5 - Hyperlipidemia, unspecified Category: Medical Qualifiers: Hyperlipidemia type: mixed hyperlipidemia Qualified Code(s): E78.2 - Mixed hyperlipidemia Plan: Most recent lipid panel somewhat improved with normalizing her thyroid function. Due to a history of statin intolerance, including myalgias with simvastatin and most recently atorvastatin, a trial of another statin will be deferred. Instead, we will attempt to further optimize her thyroid function to manage the hyperchol esterolemia. We did discuss the possibility of trying at least 1 more statin Her goal LDL is kind of undetermined at this time though will reach for an LDL to be below 130. (3) HTN (hypertension): Code(s): I10 - Essential (primary) hypertension Category: Medical Qualifiers: Hypertension type: essential hypertension Qualified Code(s): I10 - Essential (primary) hypertension Plan: Patient's blood pressure acceptable today in office. Will continue her current dose of lisinopril hydrochlorothiazide with goal blood pressure to remain below 140/90 (4) Class 1 obesity: Code(s): E66.811 - Obesity, class 1 Category: Medical Plan: Patient does understand her BMI is over 30 has been working on being more physically active and adapting to better eating habits to reduce her weight Orders: Orders TSH reflex Free T4 05/04/25 E03.9 - Hypothyroidism, unspecified Lipid Panel 05/04/25 E78.2 - Mixed hyperlipidemia Comprehensive [place]. Panel Fast 05/04/25 E78.2 - Mixed hyperlipidemia Medications: New levothyroxine (Levoxyl) 88 mcg PO DAILY 30 tabs 1RF 30 days E03.9 - Hypothyroidism, unspecified Discontinued atorvastatin (Lipitor) Discontinued Reason: Doctor's Order 40 mg PO BEDTIME 90 tabs 3RF E78.5 - Hyperlipidemia, unspecified On Hold levothyroxine Hold Comment: Doctor's Order 75 mcg PO DAILY 90 days 90 caps 1RF E78.2 - Mixed hyperlipidemia
== END 2025-05-04 15:27 | disposition home or self-care (01) ==
LOC: HO.HMCH 14:58
PROVIDERS: PCP Physician Assistant; Visit Provider Physician Assistant
DX: E03.9 Hypothyroidism, unspecified (principal); E78.2 Mixed hyperlipidemia; E66.811 Obesity, class 1; Z68.31 Body mass index [BMI] 31.0-31.9, adult; I10 Essential (primary) hypertension

== ENCOUNTER 2025-05-17 07:48 | Outpatient (REF) | payer OTHER, SELFPAY ==
--- NOTE | ~2025-05-17 | US_ITS ---
EXAMINATION: US ABDOMEN LIMITED WITH LIVER ELASTOGRAPHY CLINICAL INFORMATION: Fatty change of liver COMPARISON: Ultrasound 09/06/2024 TECHNIQUE: Real-time imaging of the abdominal viscera. Noninvasive ultrasound liver fibrosis assessment is performed using Daxa ElastPQ point quantification shear wave elastography (pSWE) with a 5 MHz transducer. Multiple elastography samples are obtained. FINDINGS: PANCREAS: The visualized pancreatic head and body are normal in appearance. The remainder of the pancreas is obscured from visualization by the overlying bowel gas. LIVER: The liver demonstrates normal contour. Diffuse increased parenchymal echogenicity. Focal fatty sparing adjacent to the gallbladder. No liver lesion otherwise or intrahepatic biliary duct dilatation. The right lobe measures 16.1 cm in length. The left lobe measures 7.6 cm in length. Shear wave elastography provides a median stiffness of 1.8 m/s (reference: normal median stiffness is 0.81 - 1.22 m/s). The IQR/median stiffness to assess sampling precision is 0.13 (reference: optimal IQR/median stiffness is under 0.3). GALLBLADDER: The gallbladder is physiologically distended without evidence of stones, sludge, polyps, wall thickening or pericholecystic fluid. COMMON BILE DUCT: Normal in caliber measuring 0.4 cm in diameter. RIGHT KIDNEY: No hydronephrosis. No renal calculi or focal parenchymal lesions. The kidney measures 12.7 cm in maximum dimension. FREE FLUID: None seen. US/US abdomen joseph w elastography IMPRESSION: 1. Hepatomegaly. Hepatic steatosis. 2. Elastography: Median stiffness of 1.8 m/s. (Previously measuring 2.01 m/s). *Liver Stiffness 1.7-2.1 m/s: Suggestive of compensated advanced chronic liver disease but need further test for confirmation. REFERENCE: Society of Radiologists in Ultrasound Liver Stiffness Thresholds (2020): LIVER STIFFNESS THRESHOLDS: *Liver Stiffness equal or less than 1.3 m/s: High probability of being normal. *Liver Stiffness less than 1.7 m/s: In the absence of other known clinical signs, rules out compensated advanced chronic liver disease. *Liver Stiffness 1.7-2.1 m/s: Suggestive of compensated advanced chronic liver disease but need further test for confirmation. *Liver Stiffness over 2.1 m/s: Rules in compensated advanced chronic liver disease. *Liver Stiffness over 2.4 m/s: Suggestive of clinically significant portal hypertension. QUALITY OF DATA SET: *IQR/Median value equal or less than 0.15 implies a quality data set. *IQR/Median value over 0.15 implies a poor quality data set. SIGNIFICANT CHANGE FROM PRIOR EXAM: Significant change if liver stiffness measurement is 10% or greater from prior exam. OTHER CONSIDERATIONS: The stage of liver fibrosis may be overestimated in the setting of acute hepatitis, liver inflammation, elevated liver function tests, hepatic vascular congestion, obstructive cholestasis, non-fasting state, and infiltrative diseases such as amyloidosis and lymphoma. In some patients with NAFLD, the liver stiffness thresholds for compensated advanced chronic liver disease may be lower. In causes other than viral hepatitis and NAFLD, liver stiffness thresholds are not well established. Electronically signed by: Harish Herrera MD 05/17/2025 11:17 AM JOON
== END 2025-05-17 07:49 | disposition home or self-care (01) ==
LOC: HO.US 07:48
PROVIDERS: PCP Physician Assistant; Visit Provider Nurse Practitioner Family
DX: K76.0 Fatty (change of) liver, not elsewhere classified (principal)
CPT/HCPCS: 76705; 76981

== ENCOUNTER → 2025-05-17 07:49 | Outpatient (BNV) | payer OTHER, SELFPAY | PROVIDERS: PCP Physician Assistant; Visit Provider Radiology Diagnostic Ultrasound | DX: K76.0 Fatty (change of) liver, not elsewhere classified (principal); R16.0 Hepatomegaly, not elsewhere classified | CPT/HCPCS: 76705 ==

== ENCOUNTER 2025-05-23 10:28 | Outpatient (REF) | payer OTHER, SELFPAY ==
[2025-05-23 11:48] LABS: Platelet Count 314 X10*3/uL (160-400)
[2025-05-23 11:49] LABS: INTERNATIONAL NORM RATIO 1.1 (0.9-1.1); Prothrombin Time 12.9 SEC (11.2-13.5)
[2025-05-23 13:08] LABS: Alanine Aminotransferase 38 U/L (0-31); Albumin Level 4.7 g/dL (3.5-5.0); Alkaline Phosphatase 81 U/L (39-117); Aspartate Amino Transferase 29 U/L (5-31); Total Protein 7.5 g/dL (6.5-8.0)
[2025-05-23 13:26] LABS: Ferritin 156 ng/mL (10-250)
[2025-05-25 10:03] LABS: Anti Nuclear Antibody Screen NEGATIVE (NEGATIVE)
[2025-06-01 00:24] LABS: FIB-ALT 26 U/L (6-29); FIB-Alpha-2-Macroglobulin 158 mg/dL (106-279); FIB-Apolipoprotein A1 176 mg/dL (101-198); FIB-GGT 89 U/L (3-55); FIB-Haptoglobin 127 mg/dL (43-212); FIB-Total Bilirubin 0.4 mg/dL (0.2-1.2); Liver Fibrosis Score 0.11; Liver Fibrosis Stage F0; Nec Inflam Act Grade A0; Nec Inflam Act Score 0.09
== END 2025-05-23 10:29 | disposition home or self-care (01) ==
LOC: HO.LAB 10:28
PROVIDERS: PCP Physician Assistant; Visit Provider Nurse Practitioner Family
DX: R79.89 Other specified abnormal findings of blood chemistry (principal); K76.0 Fatty (change of) liver, not elsewhere classified; K58.9 Irritable bowel syndrome, unspecified; R74.8 Abnormal levels of other serum enzymes
CPT/HCPCS: 36415; 80076; 81596; 82105; 82390; 82728; 85049; 85610; 86015; 86038; 86140; 86381

== ENCOUNTER 2025-05-23 10:28 | Outpatient (AMB) | payer OTHER, SELFPAY ==
--- NOTE | 2025-05-23 10:31 | MHC.OFFVIS ---
Vital Signs 05/23/25 10:37 Height 5 ft 5 in Weight 192 lb BMI 31.9 BP 144/82 H Blood Pressure Location Rt brachial Position Sitting Pulse 86 Pulse Source Pulse Oximeter Pulse Oximetry (%) 98 Oxygen Delivery Method Room Air Intake Visit Reasons: lft Intake Note: Est pt for mgmt of elevated LFTs. CC; Pt denies any new GI concerns or sx at this time. Labs and US were done. Auto Bumper Straightener Required: No Accompanied by: Self / Same As Patient Allergies atorvastatin Adverse Reaction (Intermediate, Verified 05/23/25 10:31) Joint Pain simvastatin Adverse Reaction (Intermediate, Verified 05/23/25 10:31) Muscle cramps HPI HPI lft: Details: LAST VISIT Elevated LFTs NAFL (nonalcoholic fatty liver) Plan Long discussion with patient about dietary choices. Patient is already changing her diet. NAFLD diet recommendation discussed with patient. List of food recommended as well as list of food to avoid given to patient. Patient will repeat liver panel today as well as liver fibrosis panel. She will return in 6 months to re-evaluate. Recommended weight loss and exercise. If her levels are still elevated will order additional blood work to rule out any autoimmune disorders that might be affecting her liver. However since she changed her diet and eliminated alcohol her last levels were much improved. Patient is agreeable to current plan of care and verbalizes understanding of instructions. She was given the opportunity to ask questions and all questions answered. ? Thank you for allowing me to participate in her care Orders Liver Fibrosis Pnl Today K76.0 Liver Panel Today R74.01 US abdomen joseph w elastography 6 Months K76.0 Liver Panel 6 Months R74.01 TODAY'S VISIT Patient is here today for follow-up and to discuss lab and ultrasound results. Patient denies any GI concerning symptoms. Patient reports to be doing well. Patient had increase to liver enzymes. Patient reports that she does not usually drink alcohol only occasionally. Patient reports that she is trying to eat healthy. Patient does eat more protein, very little carbs. Patient denies dyspepsia, dysphagia or odynophagia. Denies melena, hematochezia, unintentional weight loss or ribbon like stools. Patient had negative Cologuard in December of 2022. Patient will be due to have another Cologuard next year, however discussed with her that we will recommend her going for colonoscopy instead. Patient denies any family history of CRC. REPLACED BY [facility] Medical History Dyslipidemia (high LDL; low HDL) NAFL (nonalcoholic fatty liver) Surgical History History of mandibular surgery History of repair of cleft lip History of rhinoplasty Family History Father Hypertension Mother Hypertension Hypercholesterolemia Myocardial infarction, Onset Age: 55 Maternal Aunt Heart disease [facility] Alcohol intake: current Alcohol intake frequency: a few times a week Patient Tobacco Use Status: Former Tobacco user Tobacco use type: Cigarette e-Cigarette/Vaping Use: Never Used Second Hand Smoke Exposure: Yes service: No Current occupational status: employed Current occupation: self employed - [employer] Cognitive needs: No Hearing needs: No Vision needs: No Review of Systems Const Denies weight gain and Denies weight loss ENT Reports no additional complaints, Denies dysphagia and Denies odynophagia Card Reports no additional complaints Resp Reports no additional complaints GI Denies abdominal pain, Denies belching, Denies melena, Denies bloating, Denies change in bowel habits, Denies dysphagia, Denies excessive flatus, Denies dyspepsia, Denies heartburn, Denies diarrhea, Denies loose stools, Denies nausea, Denies odynophagia and Denies vomiting Musc Reports no additional complaints Neuro Reports no additional complaints Psych Reports no additional complaints Endo Reports no additional complaints Physical Exam Vital Signs: Last Vital Signs Pulse 86 05/23/25 10:37 BP 144/82 H 05/23/25 10:37 Pulse Ox 98 05/23/25 10:37 Oxygen Delivery Method Room Air 05/23/25 10:37 BMI result Body Mass Index 31.9 Const General: healthy appearing and no acute distress Nutritional Appearance: obese Orientation/consciousness: patient oriented x3 Resp Effort & Inspection: normal respiratory effort, able to speak in complete sentences, no tracheal deviation and symmetric chest movement Auscultation: clear to auscultation bilaterally Cardio Rate: regular rate GI Inspection: Yes normal to inspection, No distended and Yes obesity Palpation (GI): Soft to palpation, not firm, nontender and No hepatosplenomegaly present Auscultation: normal bowel sounds General: Yes no CVA tenderness Back/Spine/Pelvis Back: no CVA tenderness Skin General skin exam: elasticity normal, turgor normal and dry skin Neuro General: patient oriented x3 Psych Appearance: grossly normal Mental Status: mental status grossly normal Results Reviewed Results Reviewed: ABDOMINAL ULTRASOUND LIVER ELASTOGRAPHY IMPRESSION: 1. Hepatomegaly. Hepatic steatosis. 2. Elastography: Median stiffness of 1.8 m/s. (Previously measuring 2.01 m/s). *Liver Stiffness 1.7-2.1 m/s: Suggestive of compensated advanced chronic liver disease but need further test for confirmation. Laboratory Tests 11/23/24 01/28/25 04/29/25 15:54 07:58 09:33 AST 30 35 H ALT 38 H 43 H Alkaline Phosphatase 69 73 Liver Fibrosis Stage F0 Assessment & Plan Assessment & Plan (1) Elevated LFTs: Code(s): R79.89 - Other specified abnormal findings of blood chemistry Category: Medical (2) NAFL (nonalcoholic fatty liver): Code(s): K76.0 - Fatty (change of) liver, not elsewhere classified Category: Medical Plan Will rule out any acromion disorders. Improved elastography on him her last ultrasound. Discussed with patient to continue follow low fat, low carb, low-salt and high-protein diet. Patient will follow-up in 6 months and we will discuss going for colonoscopy. Patient is agreeable to current plan of care and verbalizes understanding of instructions. She was given the opportunity to ask questions and have questions answered. Thank you for allowing me to participate in her care Orders: Orders Ceruloplasmin Today R79.89 - Other specified abnormal findings of blood chemistry Liver Fibrosis Pnl Today K76.0 - Fatty (change of) liver, not elsewhere classified Ferritin Today R74.8 - Abnormal levels of other serum enzymes US abdomen joseph w elastography 6 Months K76.0 - Fatty (change of) liver, not elsewhere classified Platelet Count Today R74.01 - Elevation of levels of liver transaminase levels Alpha Fetoprotein Today R79.89 - Other specified abnormal findings of blood chemistry PAMELLA Reflex Titer and Pattern Today R74.8 - Abnormal levels of other serum enzymes Smooth Muscle Antibody Today R79.89 - Other specified abnormal findings of blood chemistry C Reactive Protein Today K58.9 - Irritable bowel syndrome, unspecified Mitochondrial Antibody Today R79.89 - Other specified abnormal findings of blood chemistry Prothrombin Time INR Today R74.8 - Abnormal levels of other serum enzymes Coding Level of Care Code Est Pt Level 3 (03590) Diagnoses Elevated LFTs R79.89 NAFL (nonalcoholic fatty liver) K76.0 Time Spent (min) 25 Comment 15 minutes spent with patient and additional 10 minutes spent reviewing her records
[2025-05-23 10:37] VITALS: BP 144/82; PULSE 86; O2SAT 98; BMI 31.9
== END 2025-05-23 11:00 | disposition home or self-care (01) ==
LOC: HO.HGI 10:29
PROVIDERS: PCP Physician Assistant; Visit Provider Nurse Practitioner Family
DX: R79.89 Other specified abnormal findings of blood chemistry (principal); K76.0 Fatty (change of) liver, not elsewhere classified
CPT/HCPCS: 99213